=== PATIENT | female | born 1950 | race Caucasian/White ===

== ENCOUNTER 2017-06-13 17:23 | Inpatient (IN) ==
--- NOTE | 2017-06-13 17:29 | Emergency Department Note ---
Disposition Clinical Impression: ST elevation myocardial infarction (STEMI) Qualifiers: Involved coronary artery: LAD coronary artery Qualified Code(s): I21.02 - ST elevation (STEMI) myocardial infarction involving left anterior descending coronary artery Disposition: Admitted As Inpatient Condition: Fair Time of Disposition: 18:10 Chest Pain HPI - General Chief Complaint: ED Chest Pain Stated Complaint: CP Time Seen by Provider: 06/13/17 17:29 Source: patient Mode of arrival: ambulatory Limitations: no limitations Vital Signs Reviewed: Yes Nursing Notes Reviewed: Yes - History of Present Illness HPI Narrative: Patient is a 67-year-old female with past medical history of COPD, smoking, hypertension, high cholesterol. She presents today due to chest pain. She states that her chest discomfort started around 5-6 hours prior to arrival around 11 AM this morning. She presented to [facility] around 2 or 3 PM. She states that while she was there she was given 4 nitroglycerin, IV pain medication, had a CT scan of the chest with IV contrast to assess for any acute process or PE. She reports that her scan was negative. She said that she left the hospital AGAINST MEDICAL ADVICE because she was not having any relief of her pain and she said "they do not tell him what was going on. She went home and was still having pain, take 2 Percocet, 4 baby aspirin prior to arrival. She came back to the ER here for continued chest pain. She states that the chest pain was 10 out of 10 earlier, has lessened to a 5 out of 10 after Percocet. She is declining any additional pain medication at this time. Chest pain is described as sharp, across her entire chest, worsened with deep inspirations, is not radiating anywhere else. Denies any associated nausea, vomiting, fevers, sweating, abdominal pain. Denies any history of CA or stents. Severity scale (1-10): 5 - Related Data Home Medications Medication Instructions Recorded Confirmed Aspirin [Lo-Dose Aspirin EC] 81 mg PO DAILY 04/24/17 06/12/17 Carvedilol [Coreg] 25 mg PO BID 04/24/17 06/12/17 Citalopram Hydrobromide 40 mg PO DAILY 04/24/17 06/12/17 [Citalopram HBr] Docusate Sodium [Dok] 100 mg PO DAILY 04/24/17 06/12/17 Ergocalciferol (VITAMIN D2) 400 unit PO DAILY 04/24/17 06/12/17 [Vitamin D] Ferrous Sulfate 325 mg PO DAILY 04/24/17 06/12/17 Lisinopril [Zestril] 40 mg PO DAILY 04/24/17 06/12/17 Oxycodone HCl/Acetaminophen 1 tab PO TID PRN 04/24/17 06/12/17 [Percocet 10-325 mg Tablet] Vitamin B Complex Vit C No.4 1 tab PO DAILY 04/24/17 06/12/17 [Super B Complex] amLODIPine [Norvasc] 5 mg PO DAILY 04/24/17 06/12/17 Previous Rx's Medication Instructions Recorded GuaiFENesin/Codeine [ROBITUSSIN 5 - 10 ml PO Q4H PRN 10 Days #500 06/01/17 w/CODEINE] ml Promethazine [Phenergan] 12.5 - 25 mg PO Q6HR PRN #80 tablet 06/04/17 Esomeprazole Magnesium [Nexium] 40 mg PO BID #60 capsule. 06/12/17 Allergies Allergy/AdvReac Type Severity Reaction Status Date / Time meloxicam [From Mobic] Allergy Anaphylaxis Verified 06/12/17 13:51 tetanus and diphtheria Allergy Swelling Verified 06/12/17 13:51 toxoids of Lip/Tongue/Throat All systems ED: reviewed and negative except as stated. Constitutional: Denies: fever Cardiovascular: Reports: chest pain. Denies: palpitations Respiratory: Reports: dyspnea. 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 - Social History Smoking Status: Current every day smoker Alcohol use: Reports: rarely Drug use: Reports: none Physical Exam - General Limitations: no limitations General appearance: alert - Head Head exam: atraumatic, normocephalic, normal inspection - Eye Eye exam: Present: normal appearance, PERRL, EOMI - ENT ENT exam: normal exam, normal oropharynx, mucous membranes moist - Neck Neck exam: Present: normal inspection, full ROM, trachea midline - Chest Chest inspection: Present: normal inspection, symmetric chest wall rise - Respiratory Respiratory exam: Present: normal lung sounds bilaterally - Cardiovascular Cardiovascular exam: Present: regular rate, normal rhythm, normal heart sounds - Abdominal Exam Abdominal exam: Present: soft, Non-Tender. Absent: tenderness, distention, guarding, rebound, rigidity - Extremities Exam Extremities exam: Present: normal inspection, full ROM. Absent: tenderness, pedal edema - Neurological Exam Neurological exam: Present: alert, oriented X3 - Psychiatric Psychiatric exam: Present: normal affect, normal mood - Skin Skin exam: Present: warm, dry, intact, normal color Course Course Narrative: Bedside EKG shows a acute ST elevation and V2, 3, aVF, V4 through V6. Concern for inferior versus inferior lateral CA. Positive STEMI. Stimulant was called , patient was given Proventil 180 mg, ACS protocol heparin dosing. Did not give aspirin here due to patient taking 324 mg of aspirin just prior to arrival. Systolic blood pressure was 90s on presentation, dropped to 60 systolic. However, patient was still mentating well and had no complete lightheadedness, dizziness. 2 L bolus started with 2 peripheral IVs. Blood pressure is now back up to 90 systolic. She is having some increase in chest pain at this time he was agreeable with trying sent now for further pain control. I spoke with Dr. Bourne in the meantime with interventional cardiology , he will take the patient to [facility]. 18:20 patient taken to [facility]. BP in 90s systolic. Still mentating well. Stable prior to transfer to [facility]. Vital Signs Temperature 98.3 F 06/13/17 17:24 Pulse Rate 75 06/13/17 17:24 Respiratory Rate 18 06/13/17 17:24 Blood Pressure 90/54 06/13/17 17:24 O2 Sat by Pulse Oximetry 93 06/13/17 17:24 Temperature 98.3 F 06/13/17 17:24 Pulse Rate 70 06/13/17 18:17 Respiratory Rate 16 06/13/17 18:17 Blood Pressure 82/62 06/13/17 18:17 O2 Sat by Pulse Oximetry 94 06/13/17 18:17 Oxygen Delivery Oxygen Delivery Nasal Cannula Chest Pain - MDM Narrative Medical decision making narrative: Bedside EKG shows a acute ST elevation and V2, 3, aVF, V4 through V6. Concern for inferior versus inferior lateral CA. Positive STEMI. Stimulant was called , patient was given Proventil 180 mg, ACS protocol heparin dosing. Did not give aspirin here due to patient taking 324 mg of aspirin just prior to arrival. Systolic blood pressure was 90s on presentation, dropped to 60 systolic. However, patient was still mentating well and had no complete lightheadedness, dizziness. 2 L bolus started with 2 peripheral IVs. Blood pressure is now back up to 90 systolic. She is having some increase in chest pain at this time he was agreeable with trying sent now for further pain control. I spoke with Dr. Bourne in the meantime with interventional cardiology , he will take the patient to [facility]. 18:20 patient taken to [facility]. BP in 90s systolic. Still mentating well. Stable prior to transfer to [facility]. - Medical Records Medical records reviewed: Yes I reviewed the patient's medical records. - Lab Data Lab results reviewed: Yes I reviewed the patient's lab results. Result diagrams: 06/13/17 17:47 06/13/17 17:47 Lab Results 06/13/17 06/13/17 06/13/17 Range/Units 17:47 17:47 17:47 WBC 15.0 H (4.3-11.1) K/mcL RBC 4.97 (3.82-4.97) M/mcL Hgb 12.2 (11.5-15.4) g/dL Hct 40.7 (35.3-44.9) % MCV 81.9 L (83.0-100.0) fL MCH 24.5 L (28.0-33.3) pg MCHC 30.0 L (31.6-35.5) g/dL RDW 16.1 H (11.5-14.5) % Plt Count 240 (140-400) K/mcL MPV 9.7 (9.4-12.4) fL Immature Gran % 0.4 (0-4) % Seg Neutrophils % 86.1 % Lymphocytes % 5.3 % Monocytes % 8.0 % Eosinophils % 0.1 % Basophils % 0.1 % Neutrophils # 12.9 H (1.6-8.9) K/mcL Lymphocytes # 0.8 (0.6-4.6) K/mcL Monocytes # 1.2 (0.0-1.3) K/mcL Eosinophils # 0.0 (0.0-0.6) K/mcL Basophils # 0.0 (0.0-0.2) K/mcL PT 12.0 (9.4-12.1) Seconds INR 1.1 APTT 30.7 (26.0-36.0) Seconds Sodium 137 (136-145) mEq/L Potassium 3.9 (3.5-5.1) mEq/L Chloride 105 (98-107) mEq/L Carbon Dioxide 27 (23-29) mEq/L BUN 12 (8-23) mg/dL Creatinine 0.82 (0.60-1.20) mg/dL Est GFR ( Amer) > 60 (> 60) Est GFR (Non-Af Amer) > 60 (> 60) BUN/Creatinine Ratio 15 (6-26) Glucose 105 (70-105) mg/dL Calculated Osmolality 284 (280-300) Calcium 8.3 L (8.6-10.3) mg/dL Magnesium 1.6 (1.6-2.6) mg/dL Troponin I < 0.03 (< 0.04) ng/mL - EKG Data EKG attestation: Yes I reviewed and interpreted this EKG. EKG results narrative: 06/13/2017 at 17:34. Normal sinus rhythm. Rate 69. WA 158. QRS 81. QTC 405. Normal axis. Acute ST elevation in leads 2, 3, aVF. There is also some ST elevation in lead V4, V5, V6. Currently concern for inferior versus inferior lateral CA. S.B.A.R. - Tadeo.B.A.R. Situation: Demographics, MOA Background: Presenting Complaint, Relevant PMH, Meds, & Allergies Assessment: Vital Signs, Course and respsone to treatment, Exam Concerns, Patient/Family Expectation, Pertinant Lab Results, Outstanding Labs Recommendation: Barrier(s) to disposition, Recommendation based on pending studies, treatments, or consults S.B.A.R. Report Given to: Dr. Steffen Dhillon Repor Time: 17:40
[2017-06-13] MEDS ORDERED: *HR* Ticagrelor 90 MG TABLET PO ONE (17:39)
[2017-06-13] MEDS ORDERED: Aspirin 81 MG TAB.CHEW ONE (17:40)
[2017-06-13] MEDS ORDERED: 0.9 % Sodium Chloride 1,000 ML ONE ×2 (17:40→17:48)
[2017-06-13] MEDS ORDERED: *HR* Heparin 5,000 UNIT/ML VIAL IVP PRN ×2 (17:40)
[2017-06-13] MEDS ORDERED: *HR* Heparin 5,000 UNIT/ML VIAL ONE (17:40)
[2017-06-13] MEDS ORDERED: *HR* Ticagrelor 90 MG TABLET ONE (17:40)
[2017-06-13] MEDS ORDERED: *HR* Heparin 5,000 UNIT/ML VIAL IVP ONE (17:40)
--- NOTE | 2017-06-13 17:42 | Emergency Department Note ---
Disposition Clinical Impression: ST elevation myocardial infarction (STEMI) Qualifiers: Involved coronary artery: LAD coronary artery Qualified Code(s): I21.02 - ST elevation (STEMI) myocardial infarction involving left anterior descending coronary artery Disposition: Admitted As Inpatient Condition: Fair Forms: ED Satisfaction Letter General Adult HPI - General Chief complaint: ED Chest Pain Stated complaint: CP Time Seen by Provider: 06/13/17 17:29 Source: patient, family Mode of arrival: ambulatory Limitations: no limitations Nursing Notes Reviewed: Yes Vital Signs Reviewed: Yes - History of Present Illness Pain Scale: 5 - Related Data Home Medications Medication Instructions Recorded Confirmed Aspirin [Lo-Dose Aspirin EC] 81 mg PO DAILY 04/24/17 06/12/17 Carvedilol [Coreg] 25 mg PO BID 04/24/17 06/12/17 Citalopram Hydrobromide 40 mg PO DAILY 04/24/17 06/12/17 [Citalopram HBr] Docusate Sodium [Dok] 100 mg PO DAILY 04/24/17 06/12/17 Ergocalciferol (VITAMIN D2) 400 unit PO DAILY 04/24/17 06/12/17 [Vitamin D] Ferrous Sulfate 325 mg PO DAILY 04/24/17 06/12/17 Lisinopril [Zestril] 40 mg PO DAILY 04/24/17 06/12/17 Oxycodone HCl/Acetaminophen 1 tab PO TID PRN 04/24/17 06/12/17 [Percocet 10-325 mg Tablet] Vitamin B Complex Vit C No.4 1 tab PO DAILY 04/24/17 06/12/17 [Super B Complex] amLODIPine [Norvasc] 5 mg PO DAILY 04/24/17 06/12/17 Previous Rx's Medication Instructions Recorded GuaiFENesin/Codeine [ROBITUSSIN 5 - 10 ml PO Q4H PRN 10 Days #500 06/01/17 w/CODEINE] ml Promethazine [Phenergan] 12.5 - 25 mg PO Q6HR PRN #80 tablet 06/04/17 Esomeprazole Magnesium [Nexium] 40 mg PO BID #60 capsule. 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 We had independent face-to- face examination and discussion. The patient was seen with the emergency medicine resident Dr. Aldo Waterman I examined this patient and my medical decision-making was reviewed with the Resident Physician/[employer]LOOR LAYER/PA. I agree with the documented findings, disposition and treatment plan as described except to the extent set forth below. Briefly: 67-year-old female seen at outside ER earlier today brought in by family for worsening and recurrent chest pain with diaphoresis and weakness. Patient arrived bed EKG showed acute ST elevation CO in 23 and aVF consistent with inferolateral wall CO Dr. Bourne jack prizer called STEMI alert called STEMI protocol is being followed. Catheter lab is being activated. Providing 40 minutes of critical care service for this patient. Patient to go to the Data Analytics Chief Scientist and then be admitted to the ICU thereafter. Time: 17:40 Vital Signs Temperature 98.3 F 06/13/17 17:24 Pulse Rate 75 06/13/17 17:24 Respiratory Rate 18 06/13/17 17:24 Blood Pressure 90/54 06/13/17 17:24 O2 Sat by Pulse Oximetry 93 06/13/17 17:24 Temperature 98.3 F 06/13/17 17:24 Pulse Rate 75 06/13/17 17:24 Respiratory Rate 18 06/13/17 17:24 Blood Pressure 90/54 06/13/17 17:24 O2 Sat by Pulse Oximetry 93 06/13/17 17:24 Oxygen Delivery Oxygen Delivery Room Air
[2017-06-13] MEDS ORDERED: 0.9 % Sodium Chloride 1,000 ML IVC ONE ×2 (17:43→18:01)
[2017-06-13] MEDS ORDERED: Heparin 25,000 UNIT/500 ML D5W 25,000 UNIT/500 ML BAG IVC SCH (17:45)
[2017-06-13 17:54] LABS: Basophils % 0.1 %; Eosinophils % 0.1 %; Hematocrit 40.7 % (35.3-44.9); Hemoglobin 12.2 g/dL (11.5-15.4); Immature Granulocytes % 0.4 % (0-4); Lymphocytes # 0.8 K/mcL (0.6-4.6); Lymphocytes % 5.3 %; Mean Corpuscular Hemoglobin 24.5 pg (28.0-33.3); Mean Corpuscular Volume 81.9 fL (83.0-100.0); Mean Platelet Volume 9.7 fL (9.4-12.4); Monocytes # 1.2 K/mcL (0.0-1.3); Neutrophils # 12.9 K/mcL (1.6-8.9); Platelet Count 240 K/mcL (140-400); Red Blood Count 4.97 M/mcL (3.82-4.97); Red Cell Distribution Width 16.1 % (11.5-14.5); Segmented Neutrophils % 86.1 %
[2017-06-13] MEDS ORDERED: *HR* Vasopressin 20 UNIT/ML VIAL ONE (17:57)
[2017-06-13] MEDS ORDERED: *HR* FentaNYL (PF) 100 MCG/2 ML VIAL IVP ONE (18:01)
[2017-06-13] MEDS ORDERED: *HR* Midazolam HCl 2 MG/2 ML VIAL ONE (18:03)
[2017-06-13] MEDS ORDERED: Heparin 1,000 UNITS/500 mL 500 ML ONE (18:03)
[2017-06-13] MEDS ORDERED: *HR* Heparin 10,000 UNIT/10 ML VIAL ONE (18:03)
[2017-06-13] MEDS ORDERED: ISOVUE-370 200 ML INFUS..BTL IV ONE ×2 (18:04→18:12)
[2017-06-13] MEDS ORDERED: Nitroglycerin 1,000 MCG/10 ML VIAL IV ONE (18:05)
--- NOTE | 2017-06-13 18:07 | Pre-Sedation Evaluation ---
Pre-sedation evaluation - Pre-sedation checklist Date of procedure: 06/13/17 Procedure: left heart cath Recent Vitals: Last Vital Signs Temp 98.3 F 06/13/17 17:24 Pulse 69 06/13/17 18:01 Resp 12 06/13/17 18:01 BP 86/49 06/13/17 18:01 Pulse Ox 93 06/13/17 18:01 H&P (including ROS) documented in medical record: Yes Previous reaction to sedatives/anesthetics: No Dietary Status: No solid food in preceding 4 hrs and no liquid in preceding 2 hrs Airway Assessment: Patient can open mouth completely, TMJ function normal Dentition: No loose teeth or bridges Possible difficult airway: No ASA Classification *see protocol: CLASS III-Severe systemic disease
--- NOTE | 2017-06-13 18:08 | Cardiology History & Physical ---
Date of Encounter: 06/23/17 Time of Encounter: 18:20 Assessment and Plan (1) Chest pain Status: Acute Patient presented with chest pain, ongoing, abnormal EKG, discussed risks and benefits of early invasive strategy, with emergent LHC, recs to proceed with LHC , with pt and family, agree to proceed. Qualifiers: Chest pain type: chest pain on breathing Qualified Code(s): R07.1 - Chest pain on breathing; R07.81 - Pleurodynia (2) CAD (coronary artery disease) Status: Acute No previous hx CAD, EKG concerning for new inf [place]. Qualifiers: Coronary Disease-Associated Artery/Lesion type: [place] artery [place] vs. transplanted heart: [place] heart Associated angina: with unstable angina Qualified Code(s): I25.110 - Atherosclerotic heart disease of [place] coronary artery with unstable angina pectoris (3) Hypotension Status: Acute Blood pressure low, continues to trend down despite medical tx, will assess for cardiogenic etiology. Qualifiers: Hypotension type: idiopathic hypotension Qualified Code(s): I95.0 - Idiopathic hypotension (4) Non-small cell lung cancer Status: Acute Started chemotherapy, continues to smoke up to a pack a day against medical advice. Qualifiers: Laterality: left Qualified Code(s): C34.92 - Malignant neoplasm of unspecified part of left bronchus or lung History of Present Illness HPI: Ms. Moya is a 67 year old female who presents to the ER with complaint of sudden onset left sided chest pain, 9/10, occurred at rest, stabbing pain at onset, became dull ache over several hours. She was evaluated in [place] ER, had chest CT which was reportedly negative for PE, was admitted for observation , but signed out AMA. She reports pain has continued to worsen throughout the day. She reports pain is now 8/10, does not change with deep breath or position. She reports pain is associated with nausea and diaphoresis, pts family at beside reports she has been clammy on and off all afternoon. She denies previous cardiac history or evaluation. She has recent diagnosis lung cancer, and is receiving IV chemotherapy. Past Med Surg Social Fam HX - Past Medical History Medical history: cancer, CHF, COPD, CVA, hyperlipidemia, hypertension, seizures Psychiatric history: no psych history - Past Surgical History Surgical History: non-contributory - Social History Smoking Status: Current every day smoker Smokeless Tobacco Status: No Alcohol use: rarely Drug use: none - Family History Mother History Unknown: Yes Medications and Allergies Aspirin [Lo-Dose Aspirin EC] 81 mg PO DAILY 04/24/17 [History] Citalopram Hydrobromide [Citalopram HBr] 40 mg PO DAILY 04/24/17 [History] Docusate Sodium [Dok] 100 mg PO DAILY 04/24/17 [History] Ergocalciferol (VITAMIN D2) [Vitamin D] 400 unit PO DAILY 04/24/17 [History] Ferrous Sulfate 325 mg PO DAILY 04/24/17 [History] Lisinopril [Zestril] 40 mg PO DAILY 04/24/17 [History] Oxycodone HCl/Acetaminophen [Percocet 10-325 mg Tablet] 1 tab PO TID PRN [History] Vitamin B Complex Vit C No.4 [Super B Complex] 1 tab PO DAILY 04/24/17 [History] amLODIPine [Norvasc] 5 mg PO DAILY 04/24/17 [History] Promethazine [Phenergan] 12.5 - 25 mg PO Q6HR PRN #80 tablet 06/04/17 [Rx] Esomeprazole Magnesium [Nexium] 40 mg PO BID #60 capsule.dr 06/12/17 [Rx] Albuterol Sulfate [Albuterol Inhaler] 2 puff IH Q4HR PRN #1 hfa.aer.ad 06/16/17 [Rx] Amoxicillin/Clavulanate [Augmentin] 875 mg PO BIDWM #14 tablet 06/16/17 [Rx] Atorvastatin [Lipitor] 40 mg PO HS #30 tablet 06/16/17 [Rx] Benzonatate [Tessalon] 100 mg PO TID PRN #30 capsule 06/16/17 [Rx] Budesonide/Formoterol 80/4.5 [Symbicort 80/4.5] 2 puff IH BID #1 hfa.aer.ad 05/31 [Rx] Carvedilol [Coreg] 6.25 mg PO BIDWM #60 tablet 06/16/17 [Rx] Doxycycline 100 mg PO BID #14 capsule 06/16/17 [Rx] GuaiFENesin ER [Mucinex] 600 mg PO BID PRN #30 tbbp.12hr 06/16/17 [Rx] Tiotropium [Spiriva] 18 mcg IH 0700 #30 capsule 06/16/17 [Rx] predniSONE [PredniSONE] 10 mg PO DAILY 8 Days tablet 06/16/17 [Rx] 3 Allergy/AdvReac Type Severity Reaction Status Date / Time meloxicam [From Mobic] Allergy Anaphylaxis Verified 06/12/17 13:51 tetanus and diphtheria Allergy Swelling Verified 06/12/17 13:51 toxoids of Lip/Tongue/Throat ROS unobtainable: due to mental status All Systems Review: The remainder of the systems were reviewed and are negative - Constitutional Constitutional: chills, fatigue, fever(s), headache(s) - Respiratory Respiratory: cough, dyspnea, other (productive cough, continues to smoke AMA) - Gastrointestinal Gastrointestinal: abdominal pain, nausea - Musculoskeletal Musculoskeletal: arthralgias, back pain, muscle cramps - Psychiatric Psychiatric: depression, panic attacks Physical Examination Vital Signs, Last 4 Hours Pulse Resp BP Pulse Ox 06/13/17 18:01 69 12 86/49 93 06/13/17 17:58 92 06/13/17 17:53 67 16 64/31 92 General: Conversant, Other (very anxious complaining of ongoing chest pain, unrelieved with medical tx so far. ) HEENT: Atraumatic, Normocephaly Neck: Normal carotid pulses Cardiac: Reg Rate and Rhythm, Normal S1 and S2, No Murmur Lungs: Other (Decreased breath sounds, scattered exp wheezes,) Neuro: Alert and responsive Abdomen: Soft, Non-Tender Skin: No rashes noted on visualized skin Musculoskeletal: No Chest Wall Tenderness Extremities: No Clubbing, No Cyanosis, No Edema, Normal Pulses Results 06/16/17 04:11 06/16/17 04:11
[2017-06-13 18:10] LABS: INR 1.1
[2017-06-13 18:12] LABS: Activated Partial Thrombo Time 30.7 Seconds (26.0-36.0)
[2017-06-13 18:16] LABS: BUN/Creatinine Ratio 15 (6-26); Blood Urea Nitrogen 12 mg/dL (8-23); Calcium 8.3 mg/dL (8.6-10.3); Carbon Dioxide 27 mEq/L (23-29); Chloride 105 mEq/L (98-107); Glucose 105 mg/dL (70-105); Magnesium 1.6 mg/dL (1.6-2.6); Osmolality,Calculated 284 (280-300); Potassium 3.9 mEq/L (3.5-5.1); Sodium 137 mEq/L (136-145); eGFR For African Americans > 60 (> 60); eGFR For Non-African Americans > 60 (> 60)
[2017-06-13 18:17] LABS: Troponin I < 0.03 ng/mL (< 0.04)
[2017-06-13] MEDS ORDERED: Ondansetron 4 MG/2 ML VIAL ONE (19:01)
[2017-06-13] MEDS ORDERED: 0.9 % Sodium Chloride 500 ML ONE (19:26)
--- NOTE | 2017-06-13 19:30 | Invasive Diagnostic Lab Proc ---
Name: Pina Moya Date of Study: 06/13/2017 Date: 1950 Ht: 63.0in Medical Record#: [id number] Age: 67 Wt: 145.51lb Gender: Female BSA: 1.69 Order #: [id number] BMI: 25.78 Physicians Procedure Physician: Jose Luis Bourne DO Referring MD: Susan nAderson MD Referring MD: Staff Name Position Time In Oswaldo Hernadez RN Monitor 06:26 PM Beny Bernal RN Manifold Operator 06:26 PM Vanessa, Joselyn RT (R) Scrub 06:26 PM Indications Indication STEMI Procedures Performed Procedure L HRT ARTERY/VENTRICLE ANGIO Pre-Procedure Checklist Informed consent is complete signed and on chart. H&P is on chart. ID band is on and ID verified with patient. Pt not NPO for procedure and MD aware. The procedure was described for the patient and questions were answered. Blood Pressure: 90/54 ECG is on chart. Rhythm: NSR Plan of Care Patient will tolerate the procedure without complications. Adequate level of comfort will be maintained. Hemodynamics will remain stable Patient will recover from procedure without complications. Respiratory function will be maintained. Cardiac rhythm will remain stable. Patient temperature will be maintained. Patient and/or family have verbalized understanding of the procedure. Patient Education Intravenous Access Time IV Size Location DC'd Fluid/Drip Rate Units RN 20g 1 1/4" Patent On Arrival Rt Arm 0.9NaCl 500 ml/hr Beny Bernal RN 18g 1 1/4" Patent On Arrival Left forearm 0.9NaCl 25 ml/hr Beny Bernal RN Allergies meloxicam Tetanus Toxoid Vital Signs Time BP (mmHg) HR (bpm) O2 Sat. RR (bpm) LOC 06:27 PM 124 / 56 72 93 % 25 5 = Fully awake and oriented or at pre-proc level 06:28 PM / % 3 = Answers simple questions/follows commands 06:43 PM / % 4 = Oriented but drowsy 06:58 PM / % 4 = Oriented but drowsy 06:27 PM 124 / 56 71 95 % 06:32 PM 90 / 49 71 94 % 06:36 PM 82 / 41 69 89 % 06:39 PM 74 / 35 69 94 % 06:42 PM 75 / 41 67 92 % 06:47 PM 86 / 43 70 92 % 06:52 PM 99 / 45 80 94 % 06:57 PM 99 / 46 80 91 % 07:02 PM 102 / 48 86 93 % 07:07 PM 106 / 47 87 94 % Procedural Medications Time Medication Dose Units Method Given By 06:27 PM Oxygen 2 L/min nasal cannula Beny Bernal RN 06:31 PM Versed 1 mg Intravenous Beny Bernal RN 06:34 PM Lidocaine 2% 20 ml Subcutaneous Jose Luis Bourne DO 06:35 PM Dopamine 5 mcg/kg/min Intravenous Beny Bernal RN 06:40 PM Dopamine 10 mcg/kg/min Intravenous Beny Bernal RN ASA Classification: Emergent Procedure: ASA score is assumed Meme Score Preprocedure Postprocedure Activity 2- Moves 4 extremities sustained head lift Activity 2- Moves 4 extremities sustained head lift Circulation 2- SBP +/= 20 points of pre-anesthetic level Circulation 2- SBP +/= 20 points of pre-anesthetic level Consciousness 2- Awake and alert oriented x 3 Consciousness 2- Awake and alert oriented x 3 O2 Saturation 1- Needs O2 inhalation to maintain O2 saturation of 90% O2 Saturation 1- Needs O2 inhalation to maintain O2 saturation of 90% Respiratory 2- Able to deep breathe and cough well Respiratory 2- Able to deep breathe and cough well Total Score 9 Total Score 9 Contrast Agent: Isovue Diagnostic Contrast: 70 ml Total Contrast: 70 ml Fluoro Dose: 235 mGy Activated Clotting Time Time Seconds to Clot 06:57 PM 179 Procedure Log Time Note Enter By 06:05 PM CathStat 06:26 PM Case Start 06:26 PM Vitals capture started with the following parameters, Patient=Adult, Interval=5 min, Initial Cqfthbva=627 mmHg, Deflation Rate=3 mmHg, Cuff placed on Right Arm 06:26 PM Pt arrived to medical lab scientist 2 at 18:20 tsites 06:26 PM Oswaldo Hernadez RN Position: Monitor Time in: 18:26 tsites 06:26 PM Beny Bernal RN Position: Manifold Operator Time in: 18:26 tsites 06:27 PM Joselyn Mendez RT (R) Position: Scrub Time in: 18:26 tsites 06:27 PM Patient charges- Angio tray pack, Navilyst 3mm J, Pulse Oximetry and ACIST tubing and transducer tsites 06:27 PM Hair removed from procedure site in procedure lab using clippers. Bilateral groin prepped with Chloraprep by Dolores, Beny RN, then patient was draped. Skin intact. tsites 06:27 PM Procedure start 18:27 tsites 06:27 PM HR=71 bpm, RBDR=592/56 mmhg, SpO2=95.0 %, Comment=nsr 06:27 PM Time: 18:27 Oxygen on at 2 L/min per nasal cannula by Beny Bernal RN tsites 06: PM Time: 18:27 Patient comfortable and pain free: No 9/10 chest pain tsites 06:28 PM Time: 18:27LOC: 5 = Fully awake and oriented or at pre-proc level tsites 06:31 PM Recorded ECG: HR=71 Condition=Condition 1 06:31 PM Physician arrived 18:31 csmith 06: PM Time: 18:31 Versed 1 mg Intravenous Given by Beny Bernal RN csmith 06:32 PM HR=71 bpm, NIBP=90/49 mmhg, SpO2=94.0 % 06:34 PM Time out performed according to hospital policy csmith 06:34 PM Pressure channel 2 zeroed. 06:34 PM Time: 18:34 20 ml Lidocaine 2% to right groin Subcutaneous Given by Jose Luis Bourne DO csmith 06:35 PM Time: 18:35 Dopamine 5 mcg/kg/min Intravenous Given by Beny Bernal RN Lopez pump csmith 06:35 PM NIBP STAT measurement started. 06:36 PM HR=69 bpm, NIBP=82/41 mmhg, SpO2=89.0 %, Comment=nsr 06:38 PM Access obtained by percutaneous puncture. 4Fr 10cm Terumo [place] sheath placed in right Femoral vein. [id number] csmith 06:38 PM NIBP STAT measurement started. 06:39 PM HR=69 bpm, NIBP=74/35 mmhg, SpO2=94.0 %, Comment=nsr 06:39 PM Micro-Introducer Kit utilized for sheath placement csmith 06:39 PM Access obtained by percutaneous puncture. 6Fr 11cm Terumo [place] sheath placed in right Femoral artery. [id number] csmith 06:40 PM 6Fr FL 4 catheter inserted over the wire DNC csmith 06:40 PM LCA angiography performed in multiple views. csmith 06:40 PM Time: 18:40 Dopamine 10 mcg/kg/min Intravenous Given by Beny Bernal RN Lopez pump csmith 06:42 PM Catheter removed csmith 06:42 PM HR=67 bpm, NIBP=75/41 mmhg, SpO2=92.0 %, Comment=nsr 06:42 PM 6Fr JR 4 Runway guide catheter was used to cannulate the PCI vessel successfully. reused? No csmith 06:42 PM Time: 18:27 Patient comfortable and pain free: Yes csmith 06:43 PM Time: 18:28LOC: 3 = Answers simple questions/follows commands csmith 06:44 PM Recorded Pressure: LV, HR=79, Condition=Condition 1 (Left Ventricle) LV 74/9/18 06:44 PM Recorded Pressure: LV, Ao, HR=75, Condition=Condition 1 (Left Ventricle) LV 80/10/20, (Aorta) Ao 77/40/56 06:44 PM Catheter selectively placed in left ventricle csmith 06:44 PM hand injection of LV csmith 06:45 PM RCA angiography performed in multiple views. csmith 06:47 PM Catheter removed csmith 06:47 PM Wire removed csmith 06:47 PM HR=70 bpm, NIBP=86/43 mmhg, SpO2=92.0 %, Comment=nsr 06:50 PM Procedure completed at 18:50 csmith 06:51 PM Did you address TRAMAINE flow and Dominance? Yes csmith 06:51 PM Sign out completed: Radiation Dose 235 mGy Fluoro Time: 2.5 Isovue 370 - 200ml contrast 70 ml given by Jose Luis Bourne DO. Complications: NoneCardiac Rehab Consult needed: NoConfirmed administered medications: Yes csmith 06:51 PM Isovue 370 - 200ml,1 Bottle(s) used. csmith 06:51 PM Sheath left in place to be pulled on floor/holding area csmith 06:51 PM Estimated Blood Loss: minimal csmith 06:51 PM Post ECG NSR csmith 06:51 PM Post Blood Pressure 86/43 csmith 06:51 PM 18:51 Post Pulses Bilateral DP 1+ csmith 06:51 PM Information taught Cardiac Cath csmith 06:52 PM Education needs Responsibilities of Patient in Care csmith 06:52 PM Learning barriers :None csmith 06:52 PM Education Methods Verbal csmith 06:52 PM Education evaluation Able to repeat information csmith 06:52 PM Site status No bleeding/hematoma - Rt Groin as reported by Sites, Joselyn RT (R) at 18:52 csmith 06:52 PM Opsite applied csmith 06:52 PM Plavix, Effient or Brilinta given No csmith 06:52 PM HR=80 bpm, NIBP=99/45 mmhg, SpO2=94.0 %, Comment=nsr 06:57 PM At 18:57 the ACT was 179 seconds. csmith 06:57 PM HR=80 bpm, NIBP=99/46 mmhg, SpO2=91.0 %, Comment=nsr 06:58 PM Time: 18:43LOC: 4 = Oriented but drowsy csmith 06:58 PM Time: 18:42 Patient comfortable and pain free: No csmith 06:59 PM Lesion found in Mid LAD. Pre Stenosis: 40 Pre TRAMAINE Flow: 3: Complete and Brisk Flow/Perfusion csmith 06:59 PM Lesion found in Proximal Circumflex. Pre Stenosis: 40 Pre TRAMAINE Flow: 3: Complete and Brisk Flow/Perfusion csmith 07:02 PM HR=86 bpm, NDMU=154/48 mmhg, SpO2=93.0 %, Comment=nsr 07:07 PM HR=87 bpm, OKHI=392/47 mmhg, SpO2=94 % 07:13 PM Time: 18:58 Patient comfortable and pain free: Yes csmith 07:13 PM Time: 18:58LOC: 4 = Oriented but drowsy csmith 07:20 PM Patient out of room: 19:20 csmith 07:20 PM Report given to lizbeth COREY Pt taken to ICU Room #1. 19:20 csmith 07:20 PM Family placed in consult room. [facility] Complications Complication None Hemodynamics Pressures Site Systolic/A Wave Diastolic/V Wave Mean LV 74 9 18 LV 80 10 20 AO 77 40 56 Post Procedure Information Blood Pressure: 86/4 mmHg Rhythm: NSR Post procedural instructions were given Closure Device Time Device Success/Fail Manual Compression Site Checks Time Location Status Staff Sheath In? Note 06:52 PM Rt Groin No bleeding/hematoma Sites, Joselyn RT (R) Pulses Time Site Pre-Procedure Post-Procedure Note 06/13/2017 6:28:00 PM Bilateral DP 2+ 6:51:00 PM Bilateral DP 1+ Updated by Joselyn Mendez, RT (R) on 06/13/2017 7:21:17 PM Joselyn Sites, RT electronically signed on 06/13/2017 7:23:11 PM with status of Final
[2017-06-13] MEDS ORDERED: 0.9 % Sodium Chloride 1,000 ML IVC SCH (19:45)
[2017-06-13] MEDS ORDERED: Ondansetron 4 MG/2 ML VIAL IVP PRN (21:09)
[2017-06-13] MEDS ORDERED: Naloxone 0.4 MG/ML INJ IVP PRN (21:09)
[2017-06-13] MEDS ORDERED: Ipratropium/Albuterol Neb 3 ML IH PRN (21:41)
[2017-06-13] MEDS: 0.9 % Sodium Chloride 1,000 ML IVC SCH (21:54)
[2017-06-13] MEDS: Norepinephrine 4 MG in D5% in Water 250 ML IVC SCH (21:55)
[2017-06-13] MEDS: OXYCODONE Oral CONC 10 MG/0.5 ML ORAL.SYG SL PRN (21:56)
[2017-06-13] MEDS: Ipratropium/Albuterol Neb 3 ML IH SCH (22:22)
[2017-06-13] MEDS: Piperacillin/Tazobactam 3.375 GM in 0.9 % Sodium Chloride Mini Bag 100 ML IVPB SCH (23:17)
[2017-06-13] MEDS: methylPREDNISolone 125 MG/2 ML VIAL IVP SCH (23:17)
--- NOTE | 2017-06-14 02:19 | Internal Med History&Physical ---
Date of Encounter: 06/13/17 Time of Encounter: 20:00 Assessment and Plan (1) Chest pain Current visit: Yes Status: Acute Etiology is undetermined. LHC unremarkable. CTA shows no PE, no aortic dissection, no pneumothorax. On CAT scan, there is cavitation of the large mass in the left upper lobe, may represent a response to internal treatment of lung cancer or less likely a superimposed infection. -Consider patient also has elevated white count and hypotension, will empirically treat patient with broad spectrum antibiotic Vanco and Zosyn - Follow blood culture - Patient's initial lactate acid 0.5 - Consult radiation oncology for further management - Continue pain medications as BP tolerates Qualifiers: Chest pain type: chest pain on breathing Qualified Code(s): R07.1 - Chest pain on breathing; R07.81 - Pleurodynia (2) Non-small cell lung cancer Current visit: Yes Status: Acute Continue follow-up with oncology as outpatient Qualifiers: Laterality: left Qualified Code(s): C34.92 - Malignant neoplasm of unspecified part of left bronchus or lung (3) History of CVA (cerebrovascular accident) Current visit: Yes Status: Acute We will resume home medication after receiving diet (4) COPD exacerbation Current visit: Yes Status: Acute Patient had increased shortness of breath. Increased oxygen requirement. Rhonchi bilaterally, consider COPD exacerbation. - Treat patient with antibiotics, steroids, and bronchodilator (5) DVT prophylaxis Current visit: Yes Status: Acute EPCD (6) Hypotension Current visit: Yes Status: Acute Patient's BP get down to 60s, need Levophed infusion to maintain the BP. Etiology is undetermined, suspected due to infection. - Continue IV fluid, continue Levophed drip - Keep patient nothing by mouth at this point - Closely monitor patient and try to taper down pressor dose - Consul critical care team in a.m. Qualifiers: Hypotension type: idiopathic hypotension Qualified Code(s): I95.0 - Idiopathic hypotension Internal Medicine - H&P: HPI Chief complaint: Chest pain Admitted From: Home Plans for Post Hospital Care: Home History of present illness: Ms. Moya is a 67 year old female with a history of COPD, hypertension, history of CVA, Non small cell lung cancer on radiation therapy, presented to ER for chest pain. Patient said she had radiation therapy yesterday. Since this morning around 10:30, she suddenly has chest pain, pain is located on left chest, no radiation, sharp, constant, worsening on deep breath. Patient also has shortness of breath. Patient denies nausea or vomiting earlier but developed nausea and vomiting later. Patient went to [facility] emergency room. CT chest to with contrast shows no PE, no aortic dissection. Patient was placed on observation in [facility] but she signed AMA. Patient to present to our emergency room later, she was suspected [place] and cardiology consul was called immediately. Patient was brought to catheter lab and did LHC, which shows minimal stenosis, cannot explain the chest pain. Cardiology called me and would like hospitalist the to take over the case. Patient's BP getting down gradually and needs pressor after LHC. Patient was sent to ICU for further management/monitoring. Past Med Surg Social Fam HX - Past Medical History Medical history: cancer, CHF, COPD, CVA, hyperlipidemia, hypertension, seizures Psychiatric history: no psych history - Past Surgical History Surgical History: non-contributory - Social History Smoking Status: Current every day smoker Packs per day: 1 Smokeless Tobacco Status: No Alcohol use: rarely Drug use: none - Family History Mother History Unknown: Yes Internal Medicine - H&P: Meds Aspirin [Lo-Dose Aspirin EC] 81 mg PO DAILY 04/24/17 [History] Carvedilol [Coreg] 25 mg PO BID 04/24/17 [History] Citalopram Hydrobromide [Citalopram HBr] 40 mg PO DAILY 04/24/17 [History] Docusate Sodium [Dok] 100 mg PO DAILY 04/24/17 [History] Ergocalciferol (VITAMIN D2) [Vitamin D] 400 unit PO DAILY 04/24/17 [History] Ferrous Sulfate 325 mg PO DAILY 04/24/17 [History] Lisinopril [Zestril] 40 mg PO DAILY 04/24/17 [History] Oxycodone HCl/Acetaminophen [Percocet 10-325 mg Tablet] 1 tab PO TID PRN [History] Vitamin B Complex Vit C No.4 [Super B Complex] 1 tab PO DAILY 04/24/17 [History] amLODIPine [Norvasc] 5 mg PO DAILY 04/24/17 [History] GuaiFENesin/Codeine [ROBITUSSIN w/CODEINE] 5 - 10 ml PO Q4H PRN 10 Days #500 ml 06/01/17 [Rx] Promethazine [Phenergan] 12.5 - 25 mg PO Q6HR PRN #80 tablet 06/04/17 [Rx] Esomeprazole Magnesium [Nexium] 40 mg PO BID #60 capsule. 06/12/17 [Rx] 3 Allergy/AdvReac Type Severity Reaction Status Date / Time meloxicam [From Mob] Allergy Anaphylaxis Verified 06/12/17 13:51 tetanus and diphtheria Allergy Swelling Verified 06/12/17 13:51 toxoids of Lip/Tongue/Throat All Systems PM: A 10-system review of systems was performed and is negative for pertinent findings except as documented above in the HPI. - Constitutional Vitals: Temp Pulse Resp BP Pulse Ox 98.4 F 68 12 104/56 94 06/14/17 00:16 06/14/17 02:00 06/14/17 02:00 06/14/17 02:00 06/14/17 02:00 General appearance: Present: A&O X 3, severe distress, answers questions appropriately - Head Head exam: Present: atraumatic, normocephalic - Eye Eye exam: Present: PERRL, conjuntiva pink, sclera anicteric Pupils: Present: PERRL - Neck Neck exam general surgery: Present: supple, trachea midline. Absent: lymphadenopathy - Respiratory Respiratory exam: Present: chest wall tenderness (On left side mid-chest), CTAB , rhonchi (Bilateral diffused rhonchi). Absent: accessory muscle use, rales, wheezes - Cardiovascular Cardiovascular exam: Present: RRR, +S1, +S2, tachycardia. Absent: diastolic murmur, gallop, rubs, systolic murmur - GI/Abdominal GI/Abdominal exam: Present: normal bowel sounds, soft, no peritoneal signs. Absent: distended, tenderness - Extremities Exam Extremities exam: Present: warm, radial pulses palpable and symmetrical. Absent : calf tenderness, cyanotic, pedal edema - Neurological Exam Neurological exam: Present: CN II-XII intact, oriented X3, no focal deficits. Absent: pronater drift, facial droop, speech deficit - Skin Skin exam: Present: dry, intact Internal Med - H&P Results - Labs CBC & Chem 7: 06/13/17 17:47 06/13/17 17:47 - VTE Documentation of Mechanical Device: Intermittent pneumatic compression device
[2017-06-14] MEDS: Norepinephrine 4 MG in D5% in Water 250 ML IVC SCH (03:19)
[2017-06-14 04:01] LABS: Basophils % 0.1 %; Hematocrit 35.6 % (35.3-44.9); Hemoglobin 10.7 g/dL (11.5-15.4); Immature Granulocytes % 0.6 % (0-4); Immature Platelets 3.2 % (1.1-6.1); Lymphocytes # 0.2 K/mcL (0.6-4.6); Lymphocytes % 1.1 %; Mean Corpuscular HGB Conc 30.1 g/dL (31.6-35.5); Mean Corpuscular Hemoglobin 24.8 pg (28.0-33.3); Mean Corpuscular Volume 82.6 fL (83.0-100.0); Mean Platelet Volume 10.4 fL (9.4-12.4); Monocytes # 0.4 K/mcL (0.0-1.3); Monocytes % 2.5 %; Platelet Count 193 K/mcL (140-400); Red Blood Count 4.31 M/mcL (3.82-4.97); Segmented Neutrophils % 95.7 %
[2017-06-14 04:14] LABS: BUN/Creatinine Ratio 15 (6-26); Blood Urea Nitrogen 11 mg/dL (8-23); Calcium 7.7 mg/dL (8.6-10.3); Carbon Dioxide 26 mEq/L (23-29); Chloride 110 mEq/L (98-107); Glucose 154 mg/dL (70-105); Magnesium 1.5 mg/dL (1.6-2.6); Osmolality,Calculated 286 (280-300); Potassium 4.2 mEq/L (3.5-5.1); Sodium 137 mEq/L (136-145); eGFR For African Americans > 60 (> 60); eGFR For Non-African Americans > 60 (> 60)
[2017-06-14] MEDS: Ipratropium/Albuterol Neb 3 ML IH SCH ×4 (04:15→22:14)
[2017-06-14 04:29] LABS: Neutrophils # 14.6 K/mcL (1.6-8.9)
[2017-06-14 04:30] LABS: Platelet Estimate Normal (Normal)
[2017-06-14] MEDS: methylPREDNISolone 125 MG/2 ML VIAL IVP SCH (05:50)
[2017-06-14] MEDS: 0.9 % Sodium Chloride 1,000 ML IVC SCH ×3 (05:50→21:43)
[2017-06-14] MEDS: OXYCODONE Oral CONC 10 MG/0.5 ML ORAL.SYG SL PRN ×4 (06:15→20:23)
--- NOTE | 2017-06-14 08:43 | Pulmonology Consult Note ---
<aMnny Zee - Last Filed: 06/14/17 13:29> Date of Encounter: 06/14/17 Time of Encounter: 08:42 Assessment and Plan (1) Chest pain Current Visit: Yes Status: Acute admitted for chest pain and concern of STEMI LHC performed emergently 06/13, UNREMARKABLE - mild atherosclerotic coronary artery disease and normal LV with normal contractility EF 60% known history of left upper lobe squamous cell carcinoma, s/p 6 radiation treatments - last recent treatment 06/12 cardiology is primary rad onc consulted CT chest reported negative for PE, known CARLTON lung mass with possible superimposed pneumonia - patient afebrile with leukocytosis and normal lactate - continue Vancomycin and Zosyn and plan for quick de-escalation if cultures negative Qualifiers: Chest pain type: chest pain on breathing Qualified Code(s): R07.1 - Chest pain on breathing; R07.81 - Pleurodynia (2) Hypotension Current Visit: Yes Status: Acute patient became hypotensive requiring Levophed - currently off with MAP >65 chest pressure has improved arterial line in place, SBP 87-122/DBP 50-70 continue to monitor hold home antihypertensive medications Qualifiers: Hypotension type: idiopathic hypotension Qualified Code(s): I95.0 - Idiopathic hypotension (3) COPD (chronic obstructive pulmonary disease) Current Visit: Yes Status: Acute wheezing on exam duonebs and space IV Solu-medrol to 40mg q8h no home oxygen requirement, keep O2 saturation >88%, wean as tolerated Qualifiers: COPD type: unspecified COPD Qualified Code(s): J44.9 - Chronic obstructive pulmonary disease, unspecified (4) Tobacco abuse Current Visit: Yes Status: Acute current smoker patient counseled on smoking cessation (5) Squamous cell carcinoma of left lung Current Visit: Yes Status: Acute follows with Dr. Mera and Dr. Fuentes, completed radiation treatment Rad Onc consulted (6) DVT prophylaxis Current Visit: Yes Status: Acute SCDs History of Present Illness Consult date: 06/14/17 Requesting physician: Delfino Andrews Reason for consult: chest pain, other (hypotension on vasopressor) Chief complaint: Chest pain History of present illness: Pina is a 67-year-old female history of COPD, squamous cell carcinoma, hypertension, current smoker who was admitted to [facility] for chest pain and STEMI. Patient was taken to the [facility] by cardiology and found to have mild atherosclerotic disease without intervention. During procedure, noted to be hypotensive despite good EF 60% and normal contractility. Patient was admitted to the intensive care unit with a central line in place for norepinephrine. Pulmonology critical care service was consulted to make help manage. At this time patient continues to have some mild chest pressure but significantly improved. She denies any shortness of breath. States the chest pressure was sudden onset worse with inspiration. CT of the chest unremarkable for pulmonary embolism. She was placed on empiric antibiotics concerning for pneumonia superimposed on lung mass. She has known left upper lobe squamous cell carcinoma which she follows with oncology Dr. Mera and just finished her last radiation treatment with Dr. Fuentes. She continues to smoke and has been counseled on sensation. She has no other complaints. She denies any recent illness, long-distance travel, or sick contacts. Past Med Surg Social Fam HX - Past Medical History Medical history: cancer, CHF, COPD, CVA, hyperlipidemia, hypertension, seizures Psychiatric history: no psych history - Past Surgical History Surgical History: non-contributory - Social History Smoking Status: Current every day smoker Packs per day: 1 Smokeless Tobacco Status: No Alcohol use: rarely Drug use: none - Family History Mother History Unknown: Yes Medications and Allergies Aspirin [Lo-Dose Aspirin EC] 81 mg PO DAILY 04/24/17 [History] Carvedilol [Coreg] 25 mg PO BID 04/24/17 [History] Citalopram Hydrobromide [Citalopram HBr] 40 mg PO DAILY 04/24/17 [History] Docusate Sodium [Dok] 100 mg PO DAILY 04/24/17 [History] Ergocalciferol (VITAMIN D2) [Vitamin D] 400 unit PO DAILY 04/24/17 [History] Ferrous Sulfate 325 mg PO DAILY 04/24/17 [History] Lisinopril [Zestril] 40 mg PO DAILY 04/24/17 [History] Oxycodone HCl/Acetaminophen [Percocet 10-325 mg Tablet] 1 tab PO TID PRN [History] Vitamin B Complex Vit C No.4 [Super B Complex] 1 tab PO DAILY 04/24/17 [History] amLODIPine [Norvasc] 5 mg PO DAILY 04/24/17 [History] GuaiFENesin/Codeine [ROBITUSSIN w/CODEINE] 5 - 10 ml PO Q4H PRN 10 Days #500 ml 06/01/17 [Rx] Promethazine [Phenergan] 12.5 - 25 mg PO Q6HR PRN #80 tablet 06/04/17 [Rx] Esomeprazole Magnesium [Nexium] 40 mg PO BID #60 capsule. 06/12/17 [Rx] 3 Allergy/AdvReac Type Severity Reaction Status Date / Time meloxicam [From [facility]] Allergy Anaphylaxis Verified 06/12/17 13:51 tetanus and diphtheria Allergy Swelling Verified 06/12/17 13:51 toxoids of Lip/Tongue/Throat All Systems: The remainder of the systems were reviewed and are negative - Constitutional Constitutional: no chills, no fever(s) - Cardiovascular Cardiovascular: chest pain, chest pain at rest, no edema, no irregular heart rhythm, no lightheadedness, no rapid heart rate, no syncope - Respiratory Respiratory: cough, dyspnea, pain with cough, no wheezing, no chest congestion - Gastrointestinal Gastrointestinal: no abdominal pain, no diarrhea, no nausea, no vomiting Physical Examination Vital Signs: Vital Signs, Last 4 Hours Pulse Resp BP Pulse Ox 06/14/17 08:00 74 14 113/65 90 06/14/17 07:45 93 06/14/17 07:00 63 14 87/50 91 06/14/17 06:00 64 10 108/57 97 06/14/17 05:00 65 17 95/51 94 General appearance: no acute distress, alert Eyes: nonicteric ENT: oropharynx moist Neck: supple Effort: normal, other Inspection: normal Auscultation: left: rales, bilateral: wheezes Cardiovascular: regular rate and rhythm Gastrointestinal: normoactive bowel sounds, soft, non-tender, non-distended Integumentary: normal Extremities: no cyanosis, no edema, no clubbing, pink and warm, pulses normal, no ischemia or petechiae Musculoskeletal: no deformities, ROM normal normal mental status, non-focal exam, motor strength normal and symmetric mood appropriate, affect normal Results - Laboratory Findings CBC and BMP: 06/14/17 04:00 06/14/17 03:48 PT/INR, D-dimer PT 12.0 Seconds (9.4-12.1) 06/13/17 17:47 Abnormal lab findings: Abnormal lab results WBC 15.2 K/mcL (4.3-11.1) H 06/14/17 04:00 Hgb 10.7 g/dL (11.5-15.4) L D 06/14/17 04:00 MCV 82.6 fL (83.0-100.0) L 06/14/17 04:00 MCH 24.8 pg (28.0-33.3) L 06/14/17 04:00 MCHC 30.1 g/dL (31.6-35.5) L 06/14/17 04:00 RDW 16.0 % (11.5-14.5) H 06/14/17 04:00 Neutrophils # 14.6 K/mcL (1.6-8.9) H 06/14/17 04:00 Lymphocytes # 0.2 K/mcL (0.6-4.6) L 06/14/17 04:00 Chloride 110 mEq/L (98-107) H 06/14/17 03:48 Glucose 154 mg/dL (70-105) H 06/14/17 03:48 POC Glucose 141 mg/dL (58-89) H 06/14/17 00:19 Calcium 7.7 mg/dL (8.6-10.3) L 06/14/17 03:48 Magnesium 1.5 mg/dL (1.6-2.6) L 06/14/17 03:48 - Clinical Findings Intake & Output: Intake & Output 06/13/17 06/14/17 06/14/17 23:59 07:59 15:59 Intake Total 3081 / 3081 1307 / 1307 Output Total 300 / 300 Balance 3081 / 3081 1007 / 1007 Consult Discharge Plan - Plan Referrals: Susan Anderson MD [Primary Care Provider] - <Brtitny Mejia S - Last Filed: 06/14/17 23:03> Date of Encounter: 06/14/17 All Systems: The remainder of the systems were reviewed and are negative Physical Examination Vital Signs: Vital Signs, Last 4 Hours Temp Pulse Resp BP Pulse Ox 06/14/17 22:14 16 114/59 93 06/14/17 21:19 98.4 F 06/14/17 21:10 78 20 118/59 90 06/14/17 20:00 66 16 134/70 94 06/14/17 19:00 70 13 113/72 93 Results - Laboratory Findings CBC and BMP: 06/14/17 04:00 06/14/17 03:48 PT/INR, D-dimer PT 12.0 Seconds (9.4-12.1) 06/13/17 17:47 Abnormal lab findings: Abnormal lab results WBC 15.2 K/mcL (4.3-11.1) H 06/14/17 04:00 Hgb 10.7 g/dL (11.5-15.4) L D 06/14/17 04:00 MCV 82.6 fL (83.0-100.0) L 06/14/17 04:00 MCH 24.8 pg (28.0-33.3) L 06/14/17 04:00 MCHC 30.1 g/dL (31.6-35.5) L 06/14/17 04:00 RDW 16.0 % (11.5-14.5) H 06/14/17 04:00 Neutrophils # 14.6 K/mcL (1.6-8.9) H 06/14/17 04:00 Lymphocytes # 0.2 K/mcL (0.6-4.6) L 06/14/17 04:00 Chloride 110 mEq/L (98-107) H 06/14/17 03:48 Glucose 154 mg/dL (70-105) H 06/14/17 03:48 POC Glucose 141 mg/dL (58-89) H 06/14/17 00:19 Calcium 7.7 mg/dL (8.6-10.3) L 06/14/17 03:48 Magnesium 1.5 mg/dL (1.6-2.6) L 06/14/17 03:48 - Microbiology Findings Microbiology Findings: Microbiology, Last 48 Hours 06/14/17 19:56 Sputum Culture - Final Sputum - Clinical Findings Intake & Output: Intake & Output 06/14/17 06/14/17 06/14/17 07:59 15:59 23:59 Intake Total 1307 / 1307 1100 / 1100 1350 / 1350 Output Total 300 / 300 300 / 300 275 / 275 Balance 1007 / 1007 800 / 800 1075 / 1075 Weight 81 kg - Attending Attestation I saw and evaluated this patient and my medical decision-making was reviewed with the Resident Physician. I agree with the documented findings, disposition and treatment plan as described except to the extent set forth below. We independently had [id number] contact with the patient Patient seen and examined at bedside Labs radiology, chart personally reviewed. Management was reviewed during multidisciplinary critical care rounds. METER READING CLERK: Patient is conscious oriented denies any headache . Pulm: Patient has CARLTON squamous cell ca finished 6 cycles of radiation patient declined chemotherapy . Patient might have some post obstructive pneumonia will give broad spectrum antibiotics Cards: Patient is hemodynamically stable yesterday blood pressure was borderline low , had LHC no active stents . To continue gentle diuresis FEN-GI:. To give salt restriction Renal:Lans output reviewed ID: No exact source if infection to continue broad spectrum antibiotics Heme/Onc:Labs reviewed . Patient had CARLTON squamous cell ca finished 6 cycles of radiotherapy . Endo: Glucose Monitored Integ/MSK: Skin Care per routine ICU Nursing Protocol to prevent ulcers. Lines: All lines examined without evidence of infection : Dispo: Can be transferred to Placed tele CODE: Full Code
[2017-06-14] MEDS: Piperacillin/Tazobactam 3.375 GM in 0.9 % Sodium Chloride Mini Bag 100 ML IVPB SCH ×2 (09:10→16:12)
--- NOTE | 2017-06-14 10:36 | Cardiology Progress Note ---
Date of Encounter: 06/14/17 Time of Encounter: 10:33 Assessment and Plan (1) Chest pain Current Visit: Yes Status: Acute Patient presented with chest pain. Due to concerning EKG she was taken for emergent cardiac catheterization. LHC showed mild non-obstructive CAD. Troponin negative. CTA negative for PE. CARLTON lung mass seen. Known non-small cell lung cancer. S/p 2 weeks radiation. Will check TTE to r/o pericardia effusion or structural heart disease. Qualifiers: Chest pain type: chest pain on breathing Qualified Code(s): R07.1 - Chest pain on breathing; R07.81 - Pleurodynia (2) CAD (coronary artery disease) Current Visit: Yes Status: Acute Mild non-obstructive CAD. LHC demonstrated 40% stenosis in the m LAD, 40% stenosis in the pLcx artery. EF preserved. Recommend asa, statin, and bb. Check TTE. Qualifiers: Coronary Disease-Associated Artery/Lesion type: [place] artery [place] vs. transplanted heart: [place] heart Associated angina: without angina Qualified Code(s): I25.10 - Atherosclerotic heart disease of [place] coronary artery without angina pectoris Discussion w patient/family: The assessment and plan as outlined above was discussed with the patient and/or family members who expressed understanding and agreement. All questions were answered. Thank you for involving us in the care of your patient. Please call with any questions. Subjective Principal diagnosis: Chest pain Interval history: Denies recurrent chest pain. B/p low overnight and she required levophed. Right groin sheath was used as arterial line. B/p stable. Nurse to d/c line. Objective Vital Signs, Last 4 Hours Temp Pulse Resp BP Pulse Ox 06/14/17 10:00 69 16 122/70 95 06/14/17 09:26 17 92 06/14/17 09:00 71 12 111/59 93 06/14/17 08:00 97.8 F 67 14 113/65 90 06/14/17 07:45 93 06/14/17 07:00 63 14 87/50 91 General: Conversant, No Apparent Distress HEENT: Atraumatic, Normocephaly, Mucus Membranes Moist Neck: No JVD, Normal carotid pulses Cardiac: Reg Rate and Rhythm, Normal S1 and S2, No Murmur Lungs: Normal Breath Sounds, No Wheeze, Rales, Rhonchi Neuro: Alert and responsive, No focal deficits noted Abdomen: Soft, Non-Tender Skin: No rashes noted on visualized skin Musculoskeletal: No Chest Wall Tenderness Extremities: No Clubbing, No Cyanosis, No Edema, Normal Pulses, Other (Right groin arterial line intact. No hematoma. ) Results 06/14/17 04:00 06/14/17 03:48 Lab Results 06/14/17 06/14/17 03:48 04:00 WBC 15.2 H Hgb 10.7 L D Hct 35.6 Plt Count 193 Sodium 137 Potassium 4.2 Chloride 110 H Carbon Dioxide 26 BUN 11 Creatinine 0.75 Glucose 154 H Calcium 7.7 L Magnesium 1.5 L - Imaging and Cardiology Echo: pending Cardiac cath: report reviewed - EKG Interpretation EKG results cardiology: personally reviewed - VTE Documentation of Mechanical Device: Intermittent pneumatic compression device Consult Discharge Plan - Plan Referrals: Susan Anderson MD [Primary Care Provider] -
[2017-06-14] MEDS: Aspirin 81 MG TAB.CHEW PO SCH (11:44)
[2017-06-14] MEDS: Nicotine 21 MG PATCH.TD24 TD SCH (14:33)
[2017-06-14] MEDS: MethylPREDNISolone 40 MG/ML VIAL IVP SCH (16:13)
[2017-06-14] MEDS: Melatonin 3 MG TABLET PO PRN (21:24)
[2017-06-15] MEDS: MethylPREDNISolone 40 MG/ML VIAL IVP SCH ×2 (00:41→08:28)
[2017-06-15] MEDS: Piperacillin/Tazobactam 3.375 GM in 0.9 % Sodium Chloride Mini Bag 100 ML IVPB SCH ×4 (00:41→23:57)
[2017-06-15] MEDS: OXYCODONE Oral CONC 10 MG/0.5 ML ORAL.SYG SL PRN ×4 (02:12→20:09)
[2017-06-15] MEDS: Ipratropium/Albuterol Neb 3 ML IH SCH ×4 (04:21→21:58)
[2017-06-15 04:33] LABS: Basophils % 0.1 %; Hematocrit 32.9 % (35.3-44.9); Immature Granulocytes % 0.9 % (0-4); Lymphocytes # 0.2 K/mcL (0.6-4.6); Lymphocytes % 1.6 %; Mean Corpuscular HGB Conc 29.8 g/dL (31.6-35.5); Mean Corpuscular Hemoglobin 24.3 pg (28.0-33.3); Mean Corpuscular Volume 81.6 fL (83.0-100.0); Mean Platelet Volume 10.6 fL (9.4-12.4); Monocytes # 0.5 K/mcL (0.0-1.3); Monocytes % 3.7 %; Neutrophils # 11.8 K/mcL (1.6-8.9); Platelet Count 159 K/mcL (140-400); Red Blood Count 4.03 M/mcL (3.82-4.97); Red Cell Distribution Width 16.3 % (11.5-14.5); Segmented Neutrophils % 93.7 %
[2017-06-15 04:38] LABS: Hemoglobin 9.8 g/dL (11.5-15.4)
[2017-06-15 04:45] LABS: BUN/Creatinine Ratio 20 (6-26); Blood Urea Nitrogen 15 mg/dL (8-23); Calcium 8.5 mg/dL (8.6-10.3); Carbon Dioxide 25 mEq/L (23-29); Chloride 113 mEq/L (98-107); Glucose 140 mg/dL (70-105); Osmolality,Calculated 291 (280-300); Potassium 4.2 mEq/L (3.5-5.1); Sodium 139 mEq/L (136-145); eGFR For African Americans > 60 (> 60); eGFR For Non-African Americans > 60 (> 60)
[2017-06-15] MEDS: 0.9 % Sodium Chloride 1,000 ML IVC SCH (04:49)
--- NOTE | 2017-06-15 07:45 | Pulmonology Progress Note ---
<Manny Zee - Last Filed: 06/15/17 11:41> Date of Encounter: 06/15/17 Time of Encounter: 07:45 Assessment and Plan (1) Chest pain Current Visit: Yes Status: Acute admitted for chest pain and concern of STEMI LHC performed emergently 06/13, UNREMARKABLE - mild atherosclerotic coronary artery disease and normal LV with normal contractility EF 60% known history of left upper lobe squamous cell carcinoma, s/p 6 radiation treatments - last recent treatment 06/12 cardiology consulted - medical management with ASA, statin, and BB rad onc consulted CT chest reported negative for PE, known CARLTON lung mass with possible superimposed pneumonia - patient afebrile with leukocytosis and normal lactate - cultures negative, de-escalate to Zosyn STABLE to transfer to telemetry Qualifiers: Chest pain type: chest pain on breathing Qualified Code(s): R07.1 - Chest pain on breathing; R07.81 - Pleurodynia (2) Respiratory failure Current Visit: Yes Status: Acute respiratory failure requiring oxygen supplementation secondary to squamous cell carcinoma, pneumonia, and COPD exacerbation continue nasal cannula and BiPAP at night wean O2 as tolerated, goal 92% CT chest negative for PE with possibly underlying pneumonia sputum and blood culture NGTD - de-escalated to Zosyn Tessalon sally for cough Qualifiers: Chronicity: unspecified Respiratory failure complication: hypoxia Qualified Code(s): J96.91 - Respiratory failure, unspecified with hypoxia (3) Pneumonia Current Visit: Yes Status: Acute respiratory failure secondary to multiple etiologies CT chest - possible superimposed pneumonia patient with hypoxia requiring 5L NC de-escalated antibiotics to Zosyn Qualifiers: Pneumonia type: due to unspecified organism Laterality: unspecified laterality Lung location: unspecified part of lung Qualified Code(s): J18.9 - Pneumonia, unspecified organism (4) Hypotension Current Visit: Yes Status: Acute patient became hypotensive requiring Levophed - currently off with MAP >65 chest pressure has improved continue to monitor cardiology consulted, recs appreciated - ECHO 06/15 -LVEF 55-60%, no pulmonary hypertension, no significant valvular dysfunction will restart Coreg at lower dose 6.25 mg BID Qualifiers: Hypotension type: idiopathic hypotension Qualified Code(s): I95.0 - Idiopathic hypotension (5) COPD (chronic obstructive pulmonary disease) Current Visit: Yes Status: Acute wheezing on exam continue scheduled bronchodilators switch steroids to Prednisone PO 40 mg no home oxygen requirement, keep O2 saturation >88%, wean as tolerated Qualifiers: COPD type: unspecified COPD Qualified Code(s): J44.9 - Chronic obstructive pulmonary disease, unspecified (6) Tobacco abuse Current Visit: Yes Status: Acute current smoker patient counseled on smoking cessation (7) Squamous cell carcinoma of left lung Current Visit: Yes Status: Acute follows with Dr. Mera and Dr. Fuentes, completed radiation treatment Rad Onc consulted (8) DVT prophylaxis Current Visit: Yes Status: Acute no signs of renal insufficiency, placed on Lovenox 40mg Subjective Principal diagnosis: Chest pain Interval history: Patient seen and examined at bedside. No acute events overnight. She is laying in bed eating her breakfast. She continues asked some chest pressure worse with coughing. She continues to have some sputum production which she reports as baseline, no change in color. She denies any shortness of breath despite being on 5 L nasal cannula. She reports stuffy nose and some sinus congestion. Denies any abdominal pain, nausea or vomiting. Her blood pressures have remained stable overnight, off Norepi. Objective PUL Vital signs: Last Vital Signs Temp 96.4 F L 06/15/17 04:59 Pulse 63 06/15/17 06:00 Resp 16 06/15/17 06:00 BP 144/71 06/15/17 06:00 Pulse Ox 93 06/15/17 06:00 General appearance: no acute distress, alert, other (follows commands, awake, conversant) Eyes: nonicteric ENT: oropharynx moist Neck: supple Effort: mildly labored Auscultation: bilateral: rales Cardiovascular: regular rate and rhythm Gastrointestinal: normoactive bowel sounds, soft, tender, non-distended Integumentary: normal Extremities: no cyanosis, no edema, no clubbing, pink and warm, pulses normal, no ischemia or petechiae Musculoskeletal: no deformities, other (chest wall tenderness on palpation) normal mental status, non-focal exam, pupils equal and round, motor strength normal and symmetric mood appropriate, affect normal Results - Laboratory Findings CBC and BMP: 06/15/17 04:09 06/15/17 04:09 PT/INR, D-dimer PT 12.0 Seconds (9.4-12.1) 06/13/17 17:47 Abnormal lab findings: Abnormal lab results WBC 12.6 K/mcL (4.3-11.1) H 06/15/17 04:09 Hgb 9.8 g/dL (11.5-15.4) L 06/15/17 04:09 Hct 32.9 % (35.3-44.9) L 06/15/17 04:09 MCV 81.6 fL (83.0-100.0) L 06/15/17 04:09 MCH 24.3 pg (28.0-33.3) L 06/15/17 04:09 MCHC 29.8 g/dL (31.6-35.5) L 06/15/17 04:09 RDW 16.3 % (11.5-14.5) H 06/15/17 04:09 Neutrophils # 11.8 K/mcL (1.6-8.9) H 06/15/17 04:09 Lymphocytes # 0.2 K/mcL (0.6-4.6) L 06/15/17 04:09 Chloride 113 mEq/L (98-107) H 06/15/17 04:09 Glucose 140 mg/dL (70-105) H 06/15/17 04:09 POC Glucose 129 mg/dL (58-89) H 06/14/17 23:56 Calcium 8.5 mg/dL (8.6-10.3) L 06/15/17 04:09 Magnesium 1.5 mg/dL (1.6-2.6) L 06/14/17 03:48 - Microbiology Findings Microbiology Findings: Microbiology, Last 48 Hours 06/14/17 19:56 Sputum Culture - Final Sputum - Clinical Findings Intake & Output: Intake & Output 06/14/17 06/14/17 06/15/17 15:59 23:59 07:59 Intake Total 1100 / 1100 1350 / 1350 1350 / 1350 Output Total 300 / 300 275 / 275 400 / 400 Balance 800 / 800 1075 / 1075 950 / 950 Weight 81 kg 79.4 kg - VTE Documentation of Mechanical Device: Intermittent pneumatic compression device Consult Discharge Plan - Plan Referrals: Susan Anderson MD [Primary Care Provider] - <Magdiel Samuels - Last Filed: 06/15/17 16:29> Date of Encounter: 06/15/17 Objective PUL Vital signs: Last Vital Signs Temp 98.2 F 06/15/17 11:15 Pulse 67 06/15/17 14:30 Resp 18 06/15/17 16:21 BP 149/82 06/15/17 14:30 Pulse Ox 92 06/15/17 16:21 Results - Laboratory Findings CBC and BMP: 06/15/17 04:09 06/15/17 04:09 PT/INR, D-dimer PT 12.0 Seconds (9.4-12.1) 06/13/17 17:47 Abnormal lab findings: Abnormal lab results WBC 12.6 K/mcL (4.3-11.1) H 06/15/17 04:09 Hgb 9.8 g/dL (11.5-15.4) L 06/15/17 04:09 Hct 32.9 % (35.3-44.9) L 06/15/17 04:09 MCV 81.6 fL (83.0-100.0) L 06/15/17 04:09 MCH 24.3 pg (28.0-33.3) L 06/15/17 04:09 MCHC 29.8 g/dL (31.6-35.5) L 06/15/17 04:09 RDW 16.3 % (11.5-14.5) H 06/15/17 04:09 Neutrophils # 11.8 K/mcL (1.6-8.9) H 06/15/17 04:09 Lymphocytes # 0.2 K/mcL (0.6-4.6) L 06/15/17 04:09 Chloride 113 mEq/L (98-107) H 06/15/17 04:09 Glucose 140 mg/dL (70-105) H 06/15/17 04:09 POC Glucose 129 mg/dL (58-89) H 06/14/17 23:56 Calcium 8.5 mg/dL (8.6-10.3) L 06/15/17 04:09 Magnesium 1.5 mg/dL (1.6-2.6) L 06/14/17 03:48 - Microbiology Findings Microbiology Findings: Microbiology, Last 48 Hours 06/13/17 21:27 Blood Culture - Preliminary Central Venous Catheter No growth. 06/13/17 20:20 Blood Culture - Preliminary Peripheral Venipuncture No growth. 06/14/17 19:56 Sputum Culture - Final Sputum - Clinical Findings Intake & Output: Intake & Output 06/15/17 06/15/17 06/15/17 07:59 15:59 23:59 Intake Total 1350 / 1350 1270 / 1270 Output Total 575 / 575 150 / 150 Balance 775 / 775 1120 / 1120 Weight 79.4 kg 81.1 kg 81.1 kg - Attending Attestation I examined this patient and my medical decision-making was reviewed with the Resident Physician. I agree with the documented findings, disposition and treatment plan as described except to the extent set forth below. We independently had [id number] contact with the patient Patient seen and examined at bedside Labs, radiology, chart personally reviewed. Management was reviewed during multidisciplinary critical care rounds. SHREDDER PICKER: No focal deficit awake and alert Pulm: Acute on chronic hypoxic respiratory failure secondary to pneumonia and COPD exacerbation complicated by underlying lung malignancy. Continue supplemental oxygen to keep saturation greater than 88% continue bronchodilators and steroids Cards: Concern for acute coronary syndrome status post left heart catheter no intervention she has medical seasonal need to continue to be treated. We are starting the patient back on dose of beta andrez. She briefly hypotensive overnight but that has resolved. Cardiology following FEN-GI: Advance diet as tolerated Renal: Urine output monitored ID: Treating for pneumonia with planned to de-escalate based upon culture and sensitivities Heme/Onc: She has lung cancer and has undergone radiation therapy with radiographic improvement I suspect that the worsening of her opacification at this time is related to pneumonia which is being treated Endo: Glucose Monitored Integ/MSK: Skin Care per routine ICU Nursing Protocol to prevent ulcers. Lines: All lines examined without evidence of infection : [facility]po[facility] CODE: Full
[2017-06-15] MEDS: Nicotine 21 MG PATCH.TD24 TD SCH (08:25)
[2017-06-15] MEDS: Aspirin 81 MG TAB.CHEW PO SCH (08:28)
--- NOTE | 2017-06-15 11:46 | Cardiology Progress Note ---
Date of Encounter: 06/15/17 Time of Encounter: 11:30 Assessment and Plan (1) Chest pain Current Visit: Yes Status: Acute Patient presented with chest pain. Due to concerning EKG she was taken for emergent cardiac catheterization. LHC showed mild non-obstructive CAD. Troponin negative. CTA negative for PE. [place] lung mass seen. Known non-small cell lung cancer. S/p 2 weeks radiation. TTE: LVEF 55-60%, no PH, no significant valvular dysfunction, normal wall motion Chest pain worsens with cough, likely pleuritic in etiology. Hx of left upper lobe lung mass, undergoing radiation therapy. No further cardiac testing warranted, Cardiology will sign-off. Qualifiers: Chest pain type: chest pain on breathing Qualified Code(s): R07.1 - Chest pain on breathing; R07.81 - Pleurodynia (2) CAD (coronary artery disease) Current Visit: Yes Status: Acute Mild non-obstructive CAD. LHC demonstrated 40% stenosis in the m LAD, 40% stenosis in the pLcx artery. EF preserved. Recommend asa, statin, and bb--resume BB when hemodynamically stable. TTE: EF normal, normal wall motion, no significant valvular dysfunction. Qualifiers: Coronary Disease-Associated Artery/Lesion type: [place] artery Elim [place] vs. transplanted heart: [place] heart Associated angina: without angina Qualified Code(s): I25.10 - Atherosclerotic heart disease of [place] coronary artery without angina pectoris Discussion w patient/family: The assessment and plan as outlined above was discussed with the patient and/or family members who expressed understanding and agreement. All questions were answered. Thank you for involving us in the care of your patient. Please call with any questions. The patient was discussed and reviewed with Dr. Farah, Cardiology will sign- off. Subjective Principal diagnosis: Chest pain Interval history: Seen and examined. Reports chest pain with cough. Objective Vital Signs, Last 4 Hours Pulse Resp BP Pulse Ox 06/15/17 10:00 79 20 140/67 92 06/15/17 09:59 18 92 06/15/17 09:00 73 20 136/72 92 06/15/17 08:00 66 18 150/82 91 General: Conversant, No Apparent Distress HEENT: Atraumatic, Normocephaly, Mucus Membranes Moist Cardiac: Reg Rate and Rhythm, Normal S1 and S2 Lungs: Other (decreased throughout) Neuro: Alert and responsive Abdomen: Soft Skin: No rashes noted on visualized skin Musculoskeletal: No Chest Wall Tenderness Extremities: No Edema, Normal Pulses Results 06/15/17 04:09 06/15/17 04:09 Lab Results 06/15/17 06/15/17 04:09 04:09 WBC 12.6 H Hgb 9.8 L Hct 32.9 L Plt Count 159 Sodium 139 Potassium 4.2 Chloride 113 H Carbon Dioxide 25 BUN 15 Creatinine 0.76 Glucose 140 H Calcium 8.5 L Active Medications Albuterol/Ipratropium (Duoneb) 3 ml IH [id number] RUDI Stop: 12/13/17 22:01 Last Admin: 06/15/17 09:59 Dose: 3 ml Albuterol/Ipratropium (Duoneb) 3 ml IH [id number] PRN PRN Reason: Shortness Of Breath/Wheezing Stop: 12/13/17 21:42 Aspirin (Aspirin) 81 mg PO DAILY RUDI Stop: 12/14/17 11:01 Last Admin: 06/15/17 08:28 Dose: 81 mg Atorvastatin Calcium (Lipitor) 40 mg PO HS RUDI Stop: 12/14/17 21:01 Last Admin: 06/14/17 20:23 Dose: 40 mg Benzonatate (Tessalon) 100 mg PO TID PRN PRN Reason: Cough Stop: 12/15/17 11:13 Carvedilol (Coreg) 6.25 mg PO BIDWM RUDI PRN Reason: Protocol Stop: 12/15/17 17:01 Enoxaparin Sodium (Lovenox) 40 mg SQ 0700 RUDI PRN Reason: Protocol Stop: 12/16/17 07:01 Guaifenesin (Mucinex) 600 mg PO BID PRN PRN Reason: Congestion Stop: 12/14/17 20:41 Last Admin: 06/14/17 21:24 Dose: 600 mg Piperacillin Sod/Tazobactam (Sod 3.375 gm/ Sodium Chloride) 100 mls @ 25 mls/ hr IVPB Q8HR RUDI Stop: 12/14/17 00:01 Last Admin: 06/15/17 08:24 Dose: 25 mls/hr Melatonin (Melatonin) 3 mg PO HS PRN PRN Reason: Insomnia Stop: 12/14/17 20:41 Last Admin: 06/14/17 21:24 Dose: 3 mg Naloxone HCl (Narcan) 0.4 mg IVP Q2MIN PRN PRN Reason: SEE COMMENTS Stop: 12/13/17 21:10 Nicotine (Nicoderm) 21 mg TD DAILY RUDI PRN Reason: Protocol Stop: 12/14/17 14:16 Last Admin: 06/15/17 08:25 Dose: 21 mg Ondansetron HCl (Zofran) 4 mg IVP Q4H PRN PRN Reason: Nausea And Vomiting Stop: 12/13/17 21:10 Oxycodone HCl (Oxycodone Oral Conc) 5 mg SL Q4H PRN; Protocol PRN Reason: mild to moderate pain Stop: 12/13/17 21:10 Oxycodone HCl (Oxycodone Oral Conc) 10 mg SL Q4H PRN; Protocol PRN Reason: Severe Pain Stop: 12/13/17 21:10 Last Admin: 06/15/17 08:30 Dose: 10 mg Prednisone (Prednisone) 40 mg PO DAILY [facility] Stop: 12/16/17 09:01 - Imaging and Cardiology Echo: report reviewed Cardiac cath: report reviewed Other Results: 12 hour tele: avg HR=67 SR. No significant event noted. - EKG Interpretation EKG results cardiology: personally reviewed - VTE Documentation of Mechanical Device: Intermittent pneumatic compression device Consult Discharge Plan - Plan Referrals: Susan Anderson MD [Primary Care Provider] -
--- NOTE | 2017-06-15 14:42 | Electrocardiograph Report ---
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
--- NOTE | 2017-06-15 14:43 | Electrocardiograph Report ---
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
[2017-06-15] MEDS ORDERED: Aminoglycoside Consult 1 EACH MC ONE (14:44)
--- NOTE | 2017-06-15 15:06 | Event Note ---
Date of Encounter: 06/15/17 Time of Encounter: 15:05 Patient accepted for transfer out of intensive care unit by admitting hospitalist, Dr. Jolly. Patient assigned to telemetry bed 2A37. Discussed the case , no further questions.
--- NOTE | 2017-06-15 16:00 | Rad Onc Consult Note ---
Radiation Oncology HPI - Oncology history Comments: 67-year-old female status post hypofractionated radiotherapy for a non-small cell lung cancer completed 06/12/17 Date: 06/15/17 Primary Care Provider: Susan Anderson History of present illness: Ms. Moya presented to [facility] with chest pain. She underwent CT PE protocol which was negative for PE and left against medical advice. However, she then called an ambulance to be transported to [place] where she was found to be hypoxic and hypotensive. Myocardial infarction was suspected, but ruled out with heart catheterization. Chest x-ray showed mass versus pneumonia. Blood and sputum cultures were negative, but patient had leukocytosis with a left shift. She was started on antibiotic therapy and steroids . She was aggressively fluid resuscitated, but still required some pressors. Over the past 24 hours since starting antibiotics, her hypoxia has improved and her blood pressure is stable. She is being transferred out of the ICU to the floor. She reports that she overall feels okay and is ready to go home, but does complain of continued coughing with clear sputum production as well as chest wall discomfort with cough and intermittently. Leukocytosis is mproving. Code Status: Full Code Past Medical History: arthritis, COPD, CVA, hypertension, malignancy, TIA Other History: hiatal hernia Surgical History: cholecystectomy, Tonsillectomy Smoking Status: Current every day smoker Smokeless Tobacco Status: No Alcohol use: rarely Drug use: none Family History -Oncology: heart disease, hypertension, stroke, cancer, other Oncology - Medications Aspirin [Lo-Dose Aspirin EC] 81 mg PO DAILY 04/24/17 [History] Carvedilol [Coreg] 25 mg PO BID 04/24/17 [History] Citalopram Hydrobromide [Citalopram HBr] 40 mg PO DAILY 04/24/17 [History] Docusate Sodium [Dok] 100 mg PO DAILY 04/24/17 [History] Ergocalciferol (VITAMIN D2) [Vitamin D] 400 unit PO DAILY 04/24/17 [History] Ferrous Sulfate 325 mg PO DAILY 04/24/17 [History] Lisinopril [Zestril] 40 mg PO DAILY 04/24/17 [History] Oxycodone HCl/Acetaminophen [Percocet 10-325 mg Tablet] 1 tab PO TID PRN [History] Vitamin B Complex Vit C No.4 [Super B Complex] 1 tab PO DAILY 04/24/17 [History] amLODIPine [Norvasc] 5 mg PO DAILY 04/24/17 [History] Promethazine [Phenergan] 12.5 - 25 mg PO Q6HR PRN #80 tablet 06/04/17 [Rx] Esomeprazole Magnesium [Nexium] 40 mg PO BID #60 capsule. 06/12/17 [Rx] 3 Allergy/AdvReac Type Severity Reaction Status Date / Time meloxicam [From Mobic] Allergy Anaphylaxis Verified 06/12/17 13:51 tetanus and diphtheria Allergy Swelling Verified 06/12/17 13:51 toxoids of Lip/Tongue/Throat Review of Systems Provider Comments: A 12 point review of systems was performed. Pertinent positives and negatives are listed below and in the history of present illness. All other systems negative. Cardio/Pulmonary: Chest Pain, Dyspnea Physical Exam - Vitals Vital Signs: Last Vital Signs Temp 98.2 F 06/15/17 11:15 Pulse 67 06/15/17 14:30 Resp 18 06/15/17 14:30 BP 149/82 06/15/17 14:30 Pulse Ox 92 06/15/17 14:30 Weight: 81.1 kg ECO - Consciousness/Orientation Level Of Consciousness: Awake, Alert, Appropriate, Follows Commands Patient Orientation: Person, Place, Time, Name, Age, Date of , Day of Month , Day of Week, Month, Year, Time of Day Physical Exam: General: Alert and oriented. Mental Status: Affect appropriate for circumstances HEENT: Sclerae anicteric. No mucositis or thrush. No other oral lesions or erythema. Skin: No rashes or petechiae. Lymph nodes: No cervical, supraclavicular, axillary, or inguinal adenopathy. Lungs: Clear to auscultation and percussion bilaterally. Cardiovascular: Regular rate and rhythm. No gallops, murmurs, or rubs. Abdomen: Soft, nontender; no organomegaly or masses palpable. Extremities: Bilateral arm and leg edema, symmetric. No calf swelling or tenderness. No joint deformity. Neurologic: Alert, cranial nerves II-XII intact; no focal weakness or sensory abnormalities. Oncology- Results - Labs Labs: Short CBC 06/15/17 Range/Units 04:09 WBC 12.6 H (4.3-11.1) K/mcL Hgb 9.8 L (11.5-15.4) g/dL Hct 32.9 L (35.3-44.9) % Plt Count 159 (140-400) K/mcL Neutrophils # 11.8 H (1.6-8.9) K/mcL BMP 06/15/17 04:09 Sodium 139 Potassium 4.2 Chloride 113 H Carbon Dioxide 25 BUN 15 Creatinine 0.76 Glucose 140 H Calcium 8.5 L - Assessment Assessment: Ms. Moya appears to have had pnemonia that is improving on antibiotics that was causing systemic effects just after completion of her radiotherapy. Chest x -ray images were reviewed and are difficult to discern responding mass versus pneumonia. During therapy, he mass was shrinking very well, and she must have had superimposed pneumonia that manifested quickly. I will see her back in the clinic as scheduled. I will obtain her CT images from [place] for review. She is clinically improving on antibiotics. Thank you for allowing me to participate in the care of this delightful lady. Sincerely, Freedom Holland MD Radiation Oncology [facility] - Patient Problem List (1) Lung cancer Status: Acute Code(s): C34.90 - Malignant neoplasm of unspecified part of unspecified bronchus or lung Qualifiers: Laterality: left Lung location: upper lobe of lung Qualified Code(s): C34.12 - Malignant neoplasm of upper lobe, left bronchus or lung SNOMED Code(s): 280264914 (2) COPD (chronic obstructive pulmonary disease) Status: Acute Code(s): J44.9 - Chronic obstructive pulmonary disease, unspecified Qualifiers: COPD type: unspecified COPD Qualified Code(s): J44.9 - Chronic obstructive pulmonary disease, unspecified SNOMED Code(s): 84050228 (3) Respiratory failure Status: Acute Code(s): J96.90 - Respiratory failure, unspecified, unspecified whether with hypoxia or hypercapnia Qualifiers: Chronicity: unspecified Respiratory failure complication: hypoxia Qualified Code(s): J96.91 - Respiratory failure, unspecified with hypoxia SNOMED Code(s): 334798240 (4) Pneumonia Status: Acute Code(s): J18.9 - Pneumonia, unspecified organism Qualifiers: Pneumonia type: due to unspecified organism Laterality: unspecified laterality Lung location: unspecified part of lung Qualified Code(s): J18.9 - Pneumonia, unspecified organism SNOMED Code(s): 230965499
[2017-06-15] MEDS: Melatonin 3 MG TABLET PO PRN (20:11)
[2017-06-15] MEDS: Benzonatate 100 MG CAPSULE PO PRN (20:15)
[2017-06-16] MEDS: OXYCODONE Oral CONC 10 MG/0.5 ML ORAL.SYG SL PRN ×3 (00:12→08:16)
[2017-06-16] MEDS: Ipratropium/Albuterol Neb 3 ML IH SCH ×2 (03:54→11:21)
[2017-06-16 04:24] LABS: Basophils % 0.1 %; Hematocrit 34.3 % (35.3-44.9); Hemoglobin 10.4 g/dL (11.5-15.4); Immature Granulocytes % 0.6 % (0-4); Lymphocytes # 0.4 K/mcL (0.6-4.6); Lymphocytes % 3.1 %; Mean Corpuscular HGB Conc 30.3 g/dL (31.6-35.5); Mean Corpuscular Hemoglobin 24.5 pg (28.0-33.3); Mean Corpuscular Volume 80.9 fL (83.0-100.0); Mean Platelet Volume 10.4 fL (9.4-12.4); Monocytes % 7.7 %; Neutrophils # 11.1 K/mcL (1.6-8.9); Platelet Count 210 K/mcL (140-400); Red Blood Count 4.24 M/mcL (3.82-4.97); Red Cell Distribution Width 16.6 % (11.5-14.5); Segmented Neutrophils % 88.5 %
[2017-06-16 04:42] LABS: BUN/Creatinine Ratio 23 (6-26); Blood Urea Nitrogen 19 mg/dL (8-23); Calcium 8.7 mg/dL (8.6-10.3); Carbon Dioxide 27 mEq/L (23-29); Chloride 112 mEq/L (98-107); Glucose 99 mg/dL (70-105); Osmolality,Calculated 292 (280-300); Potassium 3.9 mEq/L (3.5-5.1); Sodium 140 mEq/L (136-145); eGFR For African Americans > 60 (> 60); eGFR For Non-African Americans > 60 (> 60)
[2017-06-16] MEDS ORDERED: *HR* Enoxaparin 40 MG/0.4 ML SYRINGE SQ SCH (07:00)
[2017-06-16] MEDS: Nicotine 21 MG PATCH.TD24 TD SCH (08:13)
[2017-06-16] MEDS: Aspirin 81 MG TAB.CHEW PO SCH (08:13)
[2017-06-16] MEDS: Piperacillin/Tazobactam 3.375 GM in 0.9 % Sodium Chloride Mini Bag 100 ML IVPB SCH (08:18)
[2017-06-16] MEDS: Benzonatate 100 MG CAPSULE PO PRN (08:41)
[2017-06-16] MEDS ORDERED: predniSONE 20 MG TABLET PO SCH (09:00)
[2017-06-16 10:40] VITALS: BP 150/75
--- NOTE | 2017-06-16 11:44 | Discharge Summary ---
- NOTES TO OUTPATIENT PROVIDER Notes to Outpatient Provider: Follow-up with oncology regarding squamous cell cancer of the lung. Patient being discharged on home oxygen. Patient will complete treatment for pneumonia with antibiotics. Orders not resulted at time of discharge: Pending orders 06/13/17 20:20 Culture,Blood [BC] Stat 06/13/17 21:27 Culture,Blood,Additional [BC] Stat Date of Encounter: 06/16/17 Time of Encounter: 11:37 - Discharge Diagnosis (1) Chest pain Priority: Primary Status: Acute Qualifiers: Chest pain type: chest pain on breathing Qualified Code(s): R07.1 - Chest pain on breathing; R07.81 - Pleurodynia (2) Non-small cell lung cancer Priority: Secondary Status: Acute Qualifiers: Laterality: left Qualified Code(s): C34.92 - Malignant neoplasm of unspecified part of left bronchus or lung (3) History of CVA (cerebrovascular accident) Priority: Secondary Status: Acute (4) COPD exacerbation Priority: Secondary Status: Acute (5) DVT prophylaxis Priority: Secondary Status: Acute (6) Hypotension Priority: Secondary Status: Acute Qualifiers: Hypotension type: idiopathic hypotension Qualified Code(s): I95.0 - Idiopathic hypotension Hospital course: Ms. Moya is a 67 year old female patient with a history of some essential lung cancer, COPD who is undergoing radiation therapy was hospitalized here with chest pain and acute respiratory failure related to COPD exacerbation and pneumonia. Initially she was suspected of having acute ST segment changes and she underwent emergent left heart catheterization which did not show any obstructive lesion. She was then medically managed by cardiology. She did not have an elevation in her troponins. She was treated for pneumonia with IV antibiotics. She was also treated for COPD exacerbation with steroids and O2 supplementation. She has now improved significantly and is feeling much better. She does continue to require supplemental oxygen and would benefit from home oxygen. [id number] evaluation was completed today. Patient will be discharged on 3 L home oxygen. She will follow up with her primary care provider and lung specialist for further management. Discharge discussed with: patient, nurse - Time Spent with Patient Total time spent providing and/or coordinating discharge services: Greater than 30 minutes (45 min) - Discharge Medications Prescriptions: Albuterol Sulfate [Albuterol Inhaler] 2 puff IH Q4HR PRN #1 hfa.aer.ad PRN Reason: Shortness Of Breath Amoxicillin/Clavulanate [Augmentin] 875 mg PO BIDWM #14 tablet Atorvastatin [Lipitor] 40 mg PO HS #30 tablet Benzonatate [Tessalon] 100 mg PO TID PRN #30 capsule PRN Reason: Cough Budesonide/Formoterol 80/4.5 [Symbicort 80/4.5] 2 puff IH BID #1 hfa.aer.ad Carvedilol [Coreg] 6.25 mg PO BIDWM #60 tablet Doxycycline 100 mg PO BID #14 capsule GuaiFENesin ER [Mucinex] 600 mg PO BID PRN #30 tbbp.12hr PRN Reason: Congestion predniSONE [PredniSONE] 10 mg PO DAILY 8 Days tablet Tiotropium [Spiriva] 18 mcg IH 0700 #30 capsule Home Medications: Aspirin [Lo-Dose Aspirin EC] 81 mg PO DAILY 04/24/17 [History] Citalopram Hydrobromide [Citalopram HBr] 40 mg PO DAILY 04/24/17 [History] Docusate Sodium [Dok] 100 mg PO DAILY 04/24/17 [History] Ergocalciferol (VITAMIN D2) [Vitamin D] 400 unit PO DAILY 04/24/17 [History] Ferrous Sulfate 325 mg PO DAILY 04/24/17 [History] Lisinopril [Zestril] 40 mg PO DAILY 04/24/17 [History] Oxycodone HCl/Acetaminophen [Percocet 10-325 mg Tablet] 1 tab PO TID PRN [History] Vitamin B Complex Vit C No.4 [Super B Complex] 1 tab PO DAILY 04/24/17 [History] amLODIPine [Norvasc] 5 mg PO DAILY 04/24/17 [History] Promethazine [Phenergan] 12.5 - 25 mg PO Q6HR PRN #80 tablet 06/04/17 [Rx] Esomeprazole Magnesium [Nexium] 40 mg PO BID #60 capsule. 06/12/17 [Rx] Albuterol Sulfate [Albuterol Inhaler] 2 puff IH Q4HR PRN #1 hfa.aer.ad 06/16/17 [Rx] Amoxicillin/Clavulanate [Augmentin] 875 mg PO BIDWM #14 tablet 04/03/18 [Rx] Atorvastatin [Lipitor] 40 mg PO HS #30 tablet 06/16/17 [Rx] Benzonatate [Tessalon] 100 mg PO TID PRN #30 capsule 06/16/17 [Rx] Budesonide/Formoterol 80/4.5 [Symbicort 80/4.5] 2 puff IH BID #1 hfa.aer.ad 05/31 [Rx] Carvedilol [Coreg] 6.25 mg PO BIDWM #60 tablet 06/16/17 [Rx] Doxycycline 100 mg PO BID #14 capsule 06/16/17 [Rx] GuaiFENesin ER [Mucinex] 600 mg PO BID PRN #30 tbbp.12hr 06/16/17 [Rx] Tiotropium [Spiriva] 18 mcg IH 0700 #30 capsule 06/16/17 [Rx] predniSONE [PredniSONE] 10 mg PO DAILY 8 Days tablet 06/16/17 [Rx] Allergies/Adverse Reactions: 3 Allergy/AdvReac Type Severity Reaction Status Date / Time meloxicam [From Mobic] Allergy Anaphylaxis Verified 06/12/17 13:51 tetanus and diphtheria Allergy Swelling Verified 06/12/17 13:51 toxoids of Lip/Tongue/Throat Date of admission: 06/13/17 17:52 Primary care physician: Susan Anderson Consults: 06/13/17 20:09 Consult to Hospitalist [CONS] Stat Consulting Provider: Hospitalist Alcira Reason for Consult: ICU/medical management Time Notified: 20:09 Call Completed: Yes 06/13/17 21:14 Consult to Oncology Radiation [CONS] Routine Consulting Provider: Oncology Radiation [place] Reason for Consult: chest pain s/p radiation Call Completed: No Consult to Pulmonology [CONS] Routine Consulting Provider: Pulm [facility] [place] Reason for Consult: hypotension, needs pressor, chest pain Call Completed: No Discharging clinician: Susana Garrison Anticipated date of discharge: 06/16/17 - Constitutional Vitals: Temp Pulse Resp BP Pulse Ox 98 F 61 16 150/75 95 06/16/17 10:33 06/16/17 10:33 06/16/17 11:22 06/16/17 10:33 06/16/17 11:22 General appearance: Present: A&O X 3, severe distress, answers questions appropriately - Neck Neck exam general surgery: Present: supple, trachea midline. Absent: lymphadenopathy - Respiratory Respiratory exam: Present: prolonged expiratory phase, wheezes. Absent: accessory muscle use, rales, rhonchi - Cardiovascular Cardiovascular exam: Present: RRR, +S1, +S2. Absent: diastolic murmur, gallop, rubs, systolic murmur - GI/Abdominal GI/Abdominal exam: Present: normal bowel sounds, soft, no peritoneal signs. Absent: distended, tenderness - Extremities Exam Extremities exam: Present: warm, radial pulses palpable and symmetrical. Absent : calf tenderness, cyanotic, pedal edema - Patient Status Disposition: Home, Self-Care Condition: Good Functional capacity at discharge: independent ambulation Overall status at discharge: patient is progressing back to baseline - Discharge Instructions Instructions: Chronic Obstructive Pulmonary Disease (DC), Chest Pain (DC) Follow Up With: Susan Anderson MD [Primary Care Provider] - (in 1 -2 weeks) Magdiel Samuels MD [Partnered Physician] - (in 1-2 weeks) Additional Instructions: Follow-up with your medical office secretary in 1-2 weeks - Diet and Activity Activity: wear oxygen at all times Diet: low fat, low cholesterol, low salt diet - VTE Documentation of Mechanical Device: Intermittent pneumatic compression device
== END 2017-06-16 14:45 | disposition home or self-care (01) | DRG 193 ==
LOC: EMEROO 17:23 → SUATTDRO 17:52 → ICNU 17:52 → 2ANU 06-15 12:16
PROVIDERS: ADMIT Internal Medicine Cardiovascular Disease; ATTEND Internal Medicine

== ENCOUNTER 2017-07-15 22:44 | Inpatient (IN) ==
[2017-07-15] MEDS ORDERED: Isovue-370 500 ML INFUS..BTL IV ONE (23:10)
[2017-07-15] MEDS ORDERED: Ipratropium/Albuterol Neb 3 ML IH ONE (23:13)
--- NOTE | 2017-07-15 23:13 | Emergency Department Note ---
Disposition Clinical Impression: Pericardial disorder, Shortness of breath Chest pain Qualifiers: Chest pain type: unspecified Qualified Code(s): R07.9 - Chest pain, unspecified Lung cancer Qualifiers: Laterality: left Lung location: upper lobe of lung Qualified Code(s): C34.12 - Malignant neoplasm of upper lobe, left bronchus or lung Disposition: Admitted As Inpatient Condition: Good Referrals: Susan Anderson MD [Primary Care Provider] - Time of Disposition: 02:49 General Adult HPI - General Stated complaint: VANIA/low SPO2/lung CA Time Seen by Provider: 07/15/17 22:57 Nursing Notes Reviewed: Yes Vital Signs Reviewed: Yes - History of Present Illness HPI Narrative: Patient reporting a 2 day history of shortness of breath. States she does have a cough but this is chronic. States that that she can no longer get sputum up. Patient does have a history of lung cancer that she is being treated for with radiation of this time. Patient also reporting that her oxygen saturations decreased significantly while at home. Even after placing her back on her oxygen it still stayed in the 80s. - Related Data Home Medications Medication Instructions Recorded Confirmed Aspirin [Lo-Dose Aspirin EC] 81 mg PO DAILY 04/24/17 06/24/17 Citalopram Hydrobromide 40 mg PO DAILY 04/24/17 06/24/17 [Citalopram HBr] Docusate Sodium [Dok] 100 mg PO DAILY 04/24/17 06/24/17 Ergocalciferol (VITAMIN D2) 400 unit PO DAILY 04/24/17 06/24/17 [Vitamin D] Ferrous Sulfate 325 mg PO DAILY 04/24/17 06/24/17 Lisinopril [Zestril] 40 mg PO DAILY 04/24/17 06/24/17 Oxycodone HCl/Acetaminophen 1 tab PO TID PRN 04/24/17 06/24/17 [Percocet 10-325 mg Tablet] Vitamin B Complex Vit C No.4 1 tab PO DAILY 04/24/17 06/24/17 [Super B Complex] amLODIPine [Norvasc] 5 mg PO DAILY 04/24/17 06/24/17 Previous Rx's Medication Instructions Recorded Promethazine [Phenergan] 12.5 - 25 mg PO Q6HR PRN #80 tablet 06/04/17 Esomeprazole Magnesium [Nexium] 40 mg PO BID #60 capsule.dr 06/12/17 Albuterol Sulfate [Albuterol 2 puff IH Q4HR PRN #1 hfa.aer.ad 06/16/17 Inhaler] Atorvastatin [Lipitor] 40 mg PO HS #30 tablet 06/16/17 Benzonatate [Tessalon] 100 mg PO TID PRN #30 capsule 06/16/17 Budesonide/Formoterol 80/4.5 2 puff IH BID #1 hfa.aer.ad 06/16/17 [Symbicort 80/4.5] Carvedilol [Coreg] 6.25 mg PO BIDWM #60 tablet 06/16/17 Doxycycline 100 mg PO BID #14 capsule 06/16/17 GuaiFENesin ER [Mucinex] 600 mg PO BID PRN #30 tbbp.12hr 06/16/17 Tiotropium [Spiriva] 18 mcg IH 0700 #30 capsule 06/16/17 OxyCODONE/APAP 10/325 [Percocet 1 each PO Q6HR PRN 1 Days #4 tablet 07/02/17 10/325 MG] Allergies Allergy/AdvReac Type Severity Reaction Status Date / Time meloxicam [From [facility]] Allergy Anaphylaxis Verified 07/15/17 23:03 tetanus and diphtheria Allergy Swelling Verified 07/15/17 23:03 toxoids of Lip/Tongue/Throat nitroglycerin AdvReac See Verified 07/15/17 23:04 Comments All systems ED: reviewed and negative except as stated. Constitutional: Denies: fever, chills ENT ED: Denies: congestion Cardiovascular: Reports: chest pain. Denies: palpitations, syncope Respiratory: Reports: cough, dyspnea. Denies: wheezes, sputum production Gastrointestinal: Denies: abdominal pain, nausea, vomiting, diarrhea Genitourinary: Denies: urgency, dysuria, frequency Musculoskeletal: Denies: back pain, neck pain Integumentary: Denies: rash, abrasion Neurological: Denies: headache, weakness, numbness Psychiatric: Denies: anxiety, depression Past Medical History - Past Medical History Attestation: Yes The following information was validated with the patient. Source: patient Medical history: Reports: cancer, CHF, COPD, CVA, hyperlipidemia, hypertension, seizures Surgical history: Reports: non-contributory Psychiatric history: Reports: no psych history [employer] history: Reports: bilateral 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 - Social History Smoking Status: Current every day smoker Smokeless Tobacco Status: No Alcohol use: Reports: rarely Drug use: Reports: none Physical Exam - General Limitations: no limitations General appearance: alert, in no apparent distress - Head Head exam: atraumatic, normocephalic, normal inspection - Eye Eye exam: Present: normal appearance, PERRL, EOMI - ENT ENT exam: normal exam, normal oropharynx, mucous membranes moist - Neck Neck exam: Present: normal inspection, full ROM, trachea midline - Chest Chest inspection: Present: normal inspection, symmetric chest wall rise. Absent : tenderness - Respiratory Respiratory exam: Present: wheezes (Scant). Absent: respiratory distress, accessory muscle use - Cardiovascular Cardiovascular exam: Present: regular rate, normal rhythm, normal heart sounds - Abdominal Exam Abdominal exam: Present: soft, Non-Tender. Absent: tenderness, distention, guarding, rebound, rigidity - Extremities Exam Extremities exam: Present: normal inspection, full ROM. Absent: tenderness, pedal edema - Expanded Lower Extremity Exam Hip/Pelvis exam: Present: normal inspection, full ROM Upper leg exam: Present: normal inspection, full ROM Knee exam: Present: normal inspection, full ROM Lower leg exam: Present: normal inspection, full ROM Ankle exam: Present: normal inspection, full ROM Foot/toe exam: Present: normal inspection, full ROM Neurovascular/Tendon exam: Absent: motor deficit, sensory deficit, tendon deficit - Back Exam Back exam: Present: normal inspection, full ROM. Absent: tenderness - Neurological Exam Neurological exam: Present: alert, oriented X3 - Psychiatric Psychiatric exam: Present: normal affect, normal mood - Skin Skin exam: Present: warm, dry, intact, normal color Course Course Narrative: Female patient with a history of lung cancer who is undergoing radiation complaining of a 2 day history of shortness of breath and chest pain. She reports a cough that is productive. She chronically has this. Unable to produce anything with her cough. She denies any fevers recently. She has resting in bed. She states that earlier today while she was sitting her oxygen saturation dropped into the 70s. Family states that they put her oxygen on her and it only came up into the mid 80s. She is satting in the high 90s on 2 L of oxygen at this time. She not using accessory muscles and is able to speak in full sentences. Her lung sounds have some scant wheezing throughout. Due to patient's history of cancer as well as her chest pain and shortness of breath we will give CTA of patient's chest at this time. We will also do basic lab workup on patient. She is insistent that she will not stay in the emergency department however she will allow us to work. - Reevaluation(s) Reevaluation #1: Patient's creatinine is elevated. Due to patient's shortness of breath and chest pain and her recent history of cancer with radiation I am highly suspicious of a pulmonary embolus at this time. VQ scan likely will not be beneficial due to her cancer history. I feel that the need for imaging is at higher risk than the possibility of further kidney impairment. She has no history of renal issues. She does appear to be dehydrated clinically. We will hydrate patient at this time and get a CTA of the patient chest. Time: 00:10 Reevaluation #2: CTA patient's chest showed no signs of PE however she does have pericardial thickening. There is concern for metastatic disease to this area. I am concerned due to the patient's chest pain and this new finding. We are recommending admission to the patient. Time: 01:30 - Consultations Consultation #1: Dr Pichardo accepted Pt in stable condition. Time: 02:32 Vital Signs Temperature 98.7 F 07/15/17 23:05 Pulse Rate 77 07/15/17 23:05 Respiratory Rate 18 07/15/17 23:05 Blood Pressure 115/61 07/15/17 23:05 O2 Sat by Pulse Oximetry 96 07/15/17 23:05 Temperature 98.7 F 07/15/17 23:05 Pulse Rate 78 07/16/17 02:12 Respiratory Rate 16 07/16/17 02:12 Blood Pressure 104/56 07/16/17 02:12 O2 Sat by Pulse Oximetry 94 07/16/17 02:12 Oxygen Delivery Oxygen Delivery Nasal Cannula Medical Decision Making - Medical Records Medical records reviewed: Yes I reviewed the patient's medical records. - Lab Data Lab results reviewed: Yes I reviewed the patient's lab results. Result diagrams: 07/15/17 23:20 07/15/17 23:20 Lab Results 07/15/17 07/15/17 07/15/17 Range/Units 23:20 23:20 23:20 WBC 10.9 (4.3-11.1) K/mcL RBC 4.36 (3.82-4.97) M/mcL Hgb 10.7 L (11.5-15.4) g/dL Hct 35.1 L (35.3-44.9) % MCV 80.5 L (83.0-100.0) fL MCH 24.5 L (28.0-33.3) pg MCHC 30.5 L (31.6-35.5) g/dL RDW 18.9 H (11.5-14.5) % Plt Count 339 (140-400) K/mcL MPV 9.9 (9.4-12.4) fL Immature Gran % 0.4 (0-4) % Seg Neutrophils % 77.6 % Lymphocytes % 10.7 % Monocytes % 10.7 % Eosinophils % 0.4 % Basophils % 0.2 % Neutrophils # 8.4 (1.6-8.9) K/mcL Lymphocytes # 1.2 (0.6-4.6) K/mcL Monocytes # 1.2 (0.0-1.3) K/mcL Eosinophils # 0.0 (0.0-0.6) K/mcL Basophils # 0.0 (0.0-0.2) K/mcL Sodium 130 L (136-145) mEq/L Potassium 3.9 (3.5-5.1) mEq/L Chloride 98 (98-107) mEq/L Carbon Dioxide 25 (23-29) mEq/L BUN 26 H (8-23) mg/dL Creatinine 1.68 H (0.60-1.20) mg/dL Est GFR ( Amer) 37 L (> 60) Est GFR (Non-Af Amer) 30 L (> 60) BUN/Creatinine Ratio 15 (6-26) Glucose 135 H (70-105) mg/dL Calculated Osmolality 277 L (280-300) Lactic Acid 0.7 (0.5-2.2) mmol/L Calcium 9.2 (8.6-10.3) mg/dL Troponin I < 0.03 (< 0.04) ng/mL B-Natriuretic Peptide (Less than 100) pg/mL 05/02/18 Range/Units 23:20 WBC (4.3-11.1) K/mcL RBC (3.82-4.97) M/mcL Hgb (11.5-15.4) g/dL Hct (35.3-44.9) % MCV (83.0-100.0) fL MCH (28.0-33.3) pg MCHC (31.6-35.5) g/dL RDW (11.5-14.5) % Plt Count (140-400) K/mcL MPV (9.4-12.4) fL Immature Gran % (0-4) % Seg Neutrophils % % Lymphocytes % % Monocytes % % Eosinophils % % Basophils % % Neutrophils # (1.6-8.9) K/mcL Lymphocytes # (0.6-4.6) K/mcL Monocytes # (0.0-1.3) K/mcL Eosinophils # (0.0-0.6) K/mcL Basophils # (0.0-0.2) K/mcL Sodium (136-145) mEq/L Potassium (3.5-5.1) mEq/L Chloride (98-107) mEq/L Carbon Dioxide (23-29) mEq/L BUN (8-23) mg/dL Creatinine (0.60-1.20) mg/dL Est GFR ( Amer) (> 60) Est GFR (Non-Af Amer) (> 60) BUN/Creatinine Ratio (6-26) Glucose (70-105) mg/dL Calculated Osmolality (280-300) Lactic Acid (0.5-2.2) mmol/L Calcium (8.6-10.3) mg/dL Troponin I (< 0.04) ng/mL B-Natriuretic Peptide 107 H (Less than 100) pg/mL - Radiology Data Radiology results reviewed: Yes I reviewed the patient's radiology results. Chest X-Ray 07/15/17 22:57 IMPRESSION: Mild confluent airspace disease in the medial left upper lobe and lingula. Multifocal pneumonia suspected. Large hiatal hernia. Stable mild cardiomegaly. D/ / Prasanth Francisco MD / Prasanth Francisco MD Interpreting Provider: Prasanth Francisco MD Chest CTA 05/03/18 23:10 IMPRESSION: No evidence of a pulmonary embolus. The left upper lobe mass noted 04/30/2017 has decreased in size. Residual opacity likely represents postradiation change. Residual tumor cannot be excluded. Pericardial thickening/fluid may be secondary to radiation therapy. Metastatic disease not entirely excluded. D/ / Prasanth Francisco MD / Prasanth Francisco MD Interpreting Provider: Prasanth Francisco MD - EKG Data EKG #1 EKG attestation: Yes I reviewed and interpreted this EKG. EKG results narrative: Normal sinus rhythm at a rate of 78. NC interval is 147. Castration is 85. QT is 355. QTC is 388. No signs of acute ischemia. No previous EKG to compare to.
[2017-07-15 23:31] LABS: Basophils % 0.2 %; Eosinophils % 0.4 %; Hematocrit 35.1 % (35.3-44.9); Hemoglobin 10.7 g/dL (11.5-15.4); Immature Granulocytes % 0.4 % (0-4); Lymphocytes # 1.2 K/mcL (0.6-4.6); Lymphocytes % 10.7 %; Mean Corpuscular HGB Conc 30.5 g/dL (31.6-35.5); Mean Corpuscular Hemoglobin 24.5 pg (28.0-33.3); Mean Corpuscular Volume 80.5 fL (83.0-100.0); Mean Platelet Volume 9.9 fL (9.4-12.4); Monocytes # 1.2 K/mcL (0.0-1.3); Monocytes % 10.7 %; Neutrophils # 8.4 K/mcL (1.6-8.9); Platelet Count 339 K/mcL (140-400); Red Blood Count 4.36 M/mcL (3.82-4.97); Red Cell Distribution Width 18.9 % (11.5-14.5); Segmented Neutrophils % 77.6 %
[2017-07-15 23:56] LABS: BUN/Creatinine Ratio 15 (6-26); Blood Urea Nitrogen 26 mg/dL (8-23); Calcium 9.2 mg/dL (8.6-10.3); Carbon Dioxide 25 mEq/L (23-29); Chloride 98 mEq/L (98-107); Glucose 135 mg/dL (70-105); Osmolality,Calculated 277 (280-300); Potassium 3.9 mEq/L (3.5-5.1); Sodium 130 mEq/L (136-145); eGFR For African Americans 37 (> 60); eGFR For Non-African Americans 30 (> 60)
[2017-07-15 23:57] LABS: Troponin I < 0.03 ng/mL (< 0.04)
[2017-07-15] MEDS ORDERED: 0.9 % Sodium Chloride 1,000 ML IVC ONE (23:59)
[2017-07-16] MEDS ORDERED: *HR* Morphine Immed Rel 30 MG TABLET PO ONE (00:50)
[2017-07-16] MEDS ORDERED: *HR* FentaNYL (PF) 100 MCG/2 ML VIAL IVP ONE (01:28)
[2017-07-16] MEDS ORDERED: *HR* LORazepam 1 MG TABLET PO ONE (01:38)
[2017-07-16] MEDS ORDERED: 0.9 % Sodium Chloride 1,000 ML IVC ONE (02:38)
[2017-07-16] MEDS ORDERED: 0.9 % Sodium Chloride 1,000 ML ONE (02:41)
--- NOTE | 2017-07-16 02:41 | Internal Med History&Physical ---
Date of Encounter: 07/16/17 Time of Encounter: 02:39 Internal Medicine - H&P: HPI Chief complaint: Dyspnea Admitted From: Emergency Dept Plans for Post Hospital Care: Home History of present illness: Ms. Moya is a 67 year old female COPD on 2 L at night, hypertension, history of CVA, Non small cell lung cancer finished radiation therapy and not getting chemo who presents to the ED with complaints of low oxygenation at home. The patient at baseline uses 2 L of nasal cannula oxygen at night. Today she noted that her oxygenation was in the 70s and needed to use her O2 to prevent up into the 90s. Please note that the patient is heavily sedated in the ED as she received Ativan, fentanyl, and morphine and most of the history was obtained through her daughter, son and her were at bedside. She reportedly was agitated upon arrival. The patient would not wake up and answered me only with a couple words answers hardly staying awake. Apparently the patient for the last couple days has been complaining of chest pain across the upper chest that radiates to the left shoulder and into her back. The pain is easily reproducible upon touching. The pain is constant. She is also been noticing an increased frequency of her dry cough. She does have chronic cough. She has been short of breath. She is always cold. No reported fever, nausea , vomiting, headache, blurry vision, abdominal pain, diarrhea, constipation, urinary symptoms, or neurological symptoms. In the ED they were worried about a PE and a CTA of chest was done which came back with no PE. The left upper lobe mass was smaller in size. There was a mention of pericardial thickening/ fluid which may be secondary to radiation therapy. Metastatic disease is not excluded. Laboratory workup showed josue with creatinine of 1.68. The patient was given some IV fluids prior to the CTA. She has received a couple of breathing treatments. She does have audible wheezes still. Her oxygenation is in the 90s on 2 L in the ED. Otherwise hemodynamically stable. EKG with no ST or T-wave changes. First set of cardiac enzymes not elevated. Past Med Surg Social Fam HX - Past Medical History Medical history: cancer, CHF, COPD, CVA, hyperlipidemia, hypertension, seizures Psychiatric history: no psych history - Past Surgical History Surgical History: non-contributory - Social History Smoking Status: Current every day smoker Smokeless Tobacco Status: No Alcohol use: rarely Drug use: none Internal Medicine - H&P: Meds Aspirin [Lo-Dose Aspirin EC] 81 mg PO DAILY 04/24/17 [History] Citalopram Hydrobromide [Citalopram HBr] 40 mg PO DAILY 04/24/17 [History] Docusate Sodium [Dok] 100 mg PO DAILY 04/24/17 [History] Ergocalciferol (VITAMIN D2) [Vitamin D] 400 unit PO DAILY 04/24/17 [History] Ferrous Sulfate 325 mg PO DAILY 04/24/17 [History] Lisinopril [Zestril] 40 mg PO DAILY 04/24/17 [History] Oxycodone HCl/Acetaminophen [Percocet 10-325 mg Tablet] 1 tab PO TID PRN [History] Vitamin B Complex Vit C No.4 [Super B Complex] 1 tab PO DAILY 04/24/17 [History] amLODIPine [Norvasc] 5 mg PO DAILY 04/24/17 [History] Promethazine [Phenergan] 12.5 - 25 mg PO Q6HR PRN #80 tablet 06/04/17 [Rx] Esomeprazole Magnesium [Nexium] 40 mg PO BID #60 capsule. 06/12/17 [Rx] Albuterol Sulfate [Albuterol Inhaler] 2 puff IH Q4HR PRN #1 hfa.aer.ad 06/16/17 [Rx] Atorvastatin [Lipitor] 40 mg PO HS #30 tablet 06/16/17 [Rx] Benzonatate [Tessalon] 100 mg PO TID PRN #30 capsule 06/16/17 [Rx] Budesonide/Formoterol 80/4.5 [Symbicort 80/4.5] 2 puff IH BID #1 hfa.aer.ad 05/31 [Rx] Carvedilol [Coreg] 6.25 mg PO BIDWM #60 tablet 06/16/17 [Rx] Doxycycline 100 mg PO BID #14 capsule 06/16/17 [Rx] GuaiFENesin ER [Mucinex] 600 mg PO BID PRN #30 tbbp.12hr 06/16/17 [Rx] Tiotropium [Spiriva] 18 mcg IH 0700 #30 capsule 06/16/17 [Rx] OxyCODONE/APAP 10/325 [Percocet 10/325 MG] 1 each PO Q6HR PRN 1 Days #4 tablet 07/02/17 [Rx] 3 Allergy/AdvReac Type Severity Reaction Status Date / Time meloxicam [From [facility]] Allergy Anaphylaxis Verified 07/15/17 23:03 tetanus and diphtheria Allergy Swelling Verified 07/15/17 23:03 toxoids of Lip/Tongue/Throat nitroglycerin AdvReac See Verified 07/15/17 23:04 Comments All Systems PM: A 10-system review of systems was performed and is negative for pertinent findings except as documented above in the HPI. Review of systems: All systems reviewed are negative except for as mentioned above - Constitutional Vitals: Temp Pulse Resp BP Pulse Ox 98.7 F 78 16 104/56 94 07/15/17 23:05 07/16/17 02:12 07/16/17 02:12 07/16/17 02:12 07/16/17 02:12 Exam: GGEN: NAD, lethargic and sleepy. HEENT: AT, NC, No cyanosis, oral mucosa is moist, No JVD Lymphatics: No lymphadenoapthy Eyes: Extrocular muscles intact, anicteric CVS:RRR. S1, S2, No m/r/g RESP: Diminished and tight. Expiratory wheezes throughout the lung wright. ABD: Soft, NT, ND, +BS EXT: No edema, No rashes, 2+ DP NEURO: Nonfocal, CN II-XII intact, No focal motor or sensory deficits Psych: Cooperative, Not anxious or depressedal Internal Med - H&P Results - Labs CBC & Chem 7: 07/15/17 23:20 07/15/17 23:20 Labs: Short CBC 07/15/17 Range/Units 23:20 WBC 10.9 (4.3-11.1) K/mcL Hgb 10.7 L (11.5-15.4) g/dL Hct 35.1 L (35.3-44.9) % Plt Count 339 (140-400) K/mcL Neutrophils # 8.4 (1.6-8.9) K/mcL BMP 07/15/17 23:20 Sodium 130 L Potassium 3.9 Chloride 98 Carbon Dioxide 25 BUN 26 H Creatinine 1.68 H Glucose 135 H Calcium 9.2 Cardiac Enzymes 07/15/17 Range/Units 23:20 Troponin I < 0.03 (< 0.04) ng/mL - Impressions ITS Impressions Chest X-Ray 07/15/17 22:57 IMPRESSION: Mild confluent airspace disease in the medial left upper lobe and lingula. Multifocal pneumonia suspected. Large hiatal hernia. Stable mild cardiomegaly. D/ / Prasanth Francisco MD / Prasanth Francisco MD Interpreting Provider: Prasanth Francisco MD Chest CTA 07/16/17 23:10 IMPRESSION: No evidence of a pulmonary embolus. The left upper lobe mass noted 04/30/2017 has decreased in size. Residual opacity likely represents postradiation change. Residual tumor cannot be excluded. Pericardial thickening/fluid may be secondary to radiation therapy. Metastatic disease not entirely excluded. D/ / Prasanth Francisco MD / Prasanth Francisco MD Interpreting Provider: Prasanth Francisco MD - Assessment and plan (1) Hypoxia Current Visit: No Status: Acute Assessment and plan: Likely an exacerbation of COPD causing this. We will treat as below. (2) COPD exacerbation Current Visit: No Status: Acute Assessment and plan: We will start the patient on IV Solu-Medrol every 8 hours. Nebs scheduled. IV Levaquin. O2 support and wean down as tolerated. (3) Chest pain Current Visit: No Status: Acute Assessment and plan: This does not sound like typical chest pain. Less likely cardiac pain. Easily reducible on examination. The patient had similar chest pain about a month ago and was admitted and had a left heart catheterization that showed mild disease. For now we will trend cardiac enzymes and keep her on telemetry. We will check a limited echo given changes seen on a CTA. The patient had an echo last month that unremarkable and showed a preserved EF. Qualifiers: Chest pain type: unspecified Qualified Code(s): R07.9 - Chest pain, unspecified (4) JOSUE (acute kidney injury) Current Visit: No Status: Acute Assessment and plan: The patient received IV contrast for CTA chest. Received IV fluids prior to that. We will continue IV fluids and check labs in the morning. The patient has not had much oral intake over the last day or so as well. Avoid nephrotoxins. (5) Abnormal computed tomography angiography (CTA) Current Visit: No Status: Acute Assessment and plan: CTA chest mentioned something about pericardial thickening/fluid which may be secondary to radiation therapy versus metastatic disease. This may be just a nonspecific finding. Will order a limited echo for now. Patient is hemodynamically stable. (6) Non-small cell lung cancer Current Visit: No Status: Acute Assessment and plan: Status post radiation. No chemotherapy. Follow-up with oncology. Qualifiers: Laterality: left Qualified Code(s): C34.92 - Malignant neoplasm of unspecified part of left bronchus or lung (7) History of CVA (cerebrovascular accident) Current Visit: No Status: Acute Assessment and plan: Continue aspirin and statin. (8) Hypertension Current Visit: No Status: Acute Assessment and plan: Blood pressure is stable. Resume home antihypertensives. Hold lisinopril due to JOSUE. Qualifiers: Hypertension type: essential hypertension Qualified Code(s): I10 - Essential (primary) hypertension (9) DVT prophylaxis Current Visit: No Status: Acute Assessment and plan: Heparin subcutaneous - Time Spent With Patient Total time spent is greater than 50% in coordination of care (as documented) at patient's floor/unit and/or counseling patient:
[2017-07-16] MEDS ORDERED: 0.9 % Sodium Chloride 1,000 ML IVC SCH (02:45)
[2017-07-16] MEDS ORDERED: 0.9 % Sodium Chloride 500 ML IVC ONE (02:45)
[2017-07-16] MEDS ORDERED: Naloxone 0.4 MG/ML INJ IVP PRN (02:46)
[2017-07-16] MEDS ORDERED: Acetaminophen 325 MG TABLET PO PRN (02:46)
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
[2017-07-16] MEDS: Ipratropium/Albuterol Neb 3 ML IH SCH ×5 (03:26→23:45)
[2017-07-16] MEDS ORDERED: Hydrocortisone Sodium Succ 100 MG/2 ML VIAL IVP ONE (03:52)
[2017-07-16] MEDS ORDERED: Levofloxacin 750 MG/150 ML 750 MG/150 ML BAG IVPB SCH (04:00)
[2017-07-16] MEDS ORDERED: Levofloxacin 500 MG/100 ML 500 MG/100 ML BAG IVPB SCH (04:00)
[2017-07-16 05:41] LABS: Basophils % 0.1 %; Eosinophils % 0.4 %; Hematocrit 30.7 % (35.3-44.9); Hemoglobin 9.3 g/dL (11.5-15.4); Immature Granulocytes % 0.4 % (0-4); Lymphocytes # 0.8 K/mcL (0.6-4.6); Lymphocytes % 9.6 %; Mean Corpuscular HGB Conc 30.3 g/dL (31.6-35.5); Mean Corpuscular Hemoglobin 24.6 pg (28.0-33.3); Mean Corpuscular Volume 81.2 fL (83.0-100.0); Monocytes # 0.9 K/mcL (0.0-1.3); Monocytes % 10.7 %; Neutrophils # 6.6 K/mcL (1.6-8.9); Platelet Count 271 K/mcL (140-400); Red Blood Count 3.78 M/mcL (3.82-4.97); Red Cell Distribution Width 18.9 % (11.5-14.5); Segmented Neutrophils % 78.8 %
[2017-07-16 06:02] LABS: Calcium 8.3 mg/dL (8.6-10.3); Magnesium 1.7 mg/dL (1.6-2.6); Potassium 4.1 mEq/L (3.5-5.1)
[2017-07-16] MEDS ORDERED: amLODIPine 5 MG TABLET PO SCH (09:00)
[2017-07-16] MEDS: *HR* Heparin 5,000 UNIT/ML VIAL SQ SCH ×3 (09:01→21:46)
[2017-07-16] MEDS: Cholecalciferol (D-3) 1,000 UNIT TABLET PO SCH (09:01)
[2017-07-16] MEDS: methylPREDNISolone 125 MG/2 ML VIAL IVP SCH ×2 (09:03→15:56)
[2017-07-16] MEDS: Budesonide/Formoterol 80/4.5 MDI IH SCH ×2 (10:39→19:30)
--- NOTE | 2017-07-16 12:55 | Event Note ---
Date of Encounter: 07/16/17 Time of Encounter: 12:49 Patient continues to have wheezing and cough. She feels congested but is not bringing up any phlegm today. Renal function is improving. Continue bronchodilators and steroids. Continue Levaquin. Patient has also been hypotensive since this morning. Responding to IV fluids. Will monitor. Lactic acid normal. She denies any dizziness or lightheadedness. Limited echo shows small to moderate pericardial effusion with no tamponade. We will consult cardiology for recommendations. Acute kidney injury: Present on admission. Creatinine 1.68. Improved with IV hydration.
[2017-07-16] MEDS ORDERED: *HR* OxyCODONE/APAP 5/325 TABLET PO PRN (14:48)
[2017-07-16] MEDS ORDERED: Acetylcysteine 10% 2 ML INHSOL IH SCH (16:00)
--- NOTE | 2017-07-16 16:13 | Electrocardiograph Report ---
[address] [place], [place] [address] Test Date: 2017-07-15 Pat Name: Pina Moya Department: 103 Room: 05 Gender: F Insurance Writer: STEPHEN : [id number] Requested By: Charlotte Crocker Order Number: [id number] Reading MD: Sonia Yost Measurements Intervals [place] Rate: 78 P: 12 TX: 147 QRS: 33 QRSD: 85 T: 65 QT: 355 QTc: 388 Interpretive Statements SINUS RHYTHM NONSPECIFIC ST & T-WAVE ABNORMALITY Electronically Signed On 07-16-2017 16:11:56 EDT by Sonia Yost
[2017-07-16] MEDS ORDERED: MORPHINE SUL Oral CONC 10 MG/0.5 ML ORAL.SYG PO PRN (17:22)
[2017-07-16] MEDS ORDERED: Acetylcysteine 10% 2 ML INHSOL IH PRN (17:24)
[2017-07-16] MEDS ORDERED: *HR* LORazepam Oral Conc 2 MG/ML SL PRN (17:25)
--- NOTE | 2017-07-16 17:28 | Event Note ---
Date of Encounter: 07/16/17 Time of Encounter: 17:00 Discussed plan of care with patient and family. Patient wishes to just be comfortable and go home. As such, will change CODE STATUS to comfort care. We will consult palliative care and make arrangements for hospice. We will minimize any further interventions. Stop lab work. We will stop IV antibiotics at this time. Start patient on morphine and Ativan for comfort.
[2017-07-16] MEDS: MORPHINE SUL Oral CONC 10 MG/0.5 ML ORAL.SYG PO PRN (17:51)
[2017-07-16] MEDS: Nicotine 21 MG PATCH.TD24 TD SCH (17:59)
[2017-07-17] MEDS: Ipratropium/Albuterol Neb 3 ML IH SCH ×3 (03:18→11:49)
[2017-07-17] MEDS: *HR* Heparin 5,000 UNIT/ML VIAL SQ SCH (06:26)
[2017-07-17] MEDS: Budesonide/Formoterol 80/4.5 MDI IH SCH (07:53)
[2017-07-17] MEDS: Cholecalciferol (D-3) 1,000 UNIT TABLET PO SCH (08:58)
[2017-07-17] MEDS: Nicotine 21 MG PATCH.TD24 TD SCH (08:58)
[2017-07-17] MEDS: MORPHINE SUL Oral CONC 10 MG/0.5 ML ORAL.SYG PO PRN ×2 (08:59→10:11)
[2017-07-17 11:12] VITALS: BP 144/71
[2017-07-17] MEDS ORDERED: *HR* OxyCODONE Immed Rel 15 MG TABLET PO PRN (11:16)
--- NOTE | 2017-07-17 11:38 | Discharge Summary ---
- NOTES TO OUTPATIENT PROVIDER Notes to Outpatient Provider: Patient admitted with acute COPD exacerbation and acute on chronic respiratory failure with underlying lung cancer. We will discharge today on hospice per patient and family request Date of Encounter: 07/17/17 Time of Encounter: 11:37 - Discharge Diagnosis (1) Acute and chronic respiratory failure with hypoxia Priority: Primary Status: Acute (2) COPD exacerbation Priority: Secondary Status: Acute (3) Non-small cell lung cancer Priority: Secondary Status: Acute Qualifiers: Laterality: left Qualified Code(s): C34.92 - Malignant neoplasm of unspecified part of left bronchus or lung (4) History of CVA (cerebrovascular accident) Priority: Secondary Status: Acute (5) Hypertension Priority: Secondary Status: Acute Qualifiers: Hypertension type: essential hypertension Qualified Code(s): I10 - Essential (primary) hypertension (6) DVT prophylaxis Priority: Secondary Status: Acute (7) JOSUE (acute kidney injury) Priority: Secondary Status: Acute (8) Hypoxia Priority: Secondary Status: Acute (9) Chest pain Priority: Secondary Status: Acute Qualifiers: Chest pain type: pleurodynia Qualified Code(s): R07.81 - Pleurodynia (10) Abnormal computed tomography angiography (CTA) Priority: Secondary Status: Acute Hospital course: Ms. Moya is a 67 year old female patient with recently diagnosed non-small cell lung cancer who underwent radiation treatment to last month presented to the ER with worsening shortness of breath. She was diagnosed with acute COPD exacerbation with acute respiratory failure with hypoxia. She was started on treatment with bronchodilators, intravenous steroids and O2 supplementation. Given her cancer and overall proved poor prognosis, patient did not want any further treatment and wished to go home on hospice. As such CODE STATUS has been changed to comfort care and after discussing with palliative care, patient will be discharged home with hospice today. Patient and family are in agreement with the treatment plan. She is willing to take short course of antibiotics and steroids for her current episode of COPD. She will be discharged on Levaquin and prednisone for 5 days. Discharge discussed with: patient, family, nurse, case management, publicity consultant - Time Spent with Patient Total time spent providing and/or coordinating discharge services: Less than 30 minutes (25 min) - Discharge Medications Prescriptions: Morphine Sulfate SR (12 HR) [MS Contin] 1 tab PO Q12HR 4 Days #8 tab levoFLOXacin [Levofloxacin] 500 mg PO Q48H #3 tablet LORazepam [Ativan] 1 mg PO QID PRN 4 Days #16 tablet PRN Reason: Anxiety OxyCODONE Immed Rel [Roxicodone 15 MG] 15 mg PO Q3H PRN 4 Days #24 tablet PRN Reason: Breakthrough Pain predniSONE [PredniSONE] 40 mg PO DAILY #10 tablet Sennosides/Docusate Sodium [Senna Plus] 2 each PO BID 4 Days #16 tablet Home Medications: Aspirin [Lo-Dose Aspirin EC] 81 mg PO DAILY 04/24/17 [History] Citalopram Hydrobromide [Citalopram HBr] 40 mg PO DAILY 04/24/17 [History] Ergocalciferol (VITAMIN D2) [Vitamin D] 400 unit PO DAILY 04/24/17 [History] Ferrous Sulfate 325 mg PO DAILY 04/24/17 [History] Lisinopril [Zestril] 40 mg PO DAILY 04/24/17 [History] Vitamin B Complex Vit C No.4 [Super B Complex] 1 tab PO DAILY 04/24/17 [History] amLODIPine [Norvasc] 5 mg PO DAILY 04/24/17 [History] Promethazine [Phenergan] 12.5 - 25 mg PO Q6HR PRN #80 tablet 06/04/17 [Rx] Esomeprazole Magnesium [Nexium] 40 mg PO BID #60 capsule.dr 06/12/17 [Rx] Albuterol Sulfate [Albuterol Inhaler] 2 puff IH Q4HR PRN #1 hfa.aer.ad 06/16/17 [Rx] Atorvastatin [Lipitor] 40 mg PO HS #30 tablet 06/16/17 [Rx] Benzonatate [Tessalon] 100 mg PO TID PRN #30 capsule 06/16/17 [Rx] Budesonide/Formoterol 80/4.5 [Symbicort 80/4.5] 2 puff IH BID #1 hfa.aer.ad 05/31 [Rx] Carvedilol [Coreg] 6.25 mg PO BIDWM #60 tablet 06/16/17 [Rx] GuaiFENesin ER [Mucinex] 600 mg PO BID PRN #30 tbbp.12hr 06/16/17 [Rx] Tiotropium [Spiriva] 18 mcg IH 0700 #30 capsule 06/16/17 [Rx] OxyCODONE/APAP 10/325 [Percocet 10/325 MG] 1 each PO Q6HR PRN 1 Days #4 tablet 07/02/17 [Rx] LORazepam [Ativan] 1 mg PO QID PRN 4 Days #16 tablet 07/17/17 [Rx] Morphine Sulfate SR (12 HR) [MS Contin] 1 tab PO Q12HR 4 Days #8 tab 07/17/17 [ Rx] OxyCODONE Immed Rel [Roxicodone 15 MG] 15 mg PO Q3H PRN 4 Days #24 tablet [Rx] Sennosides/Docusate Sodium [Senna Plus] 2 each PO BID 4 Days #16 tablet [Rx] levoFLOXacin [Levofloxacin] 500 mg PO Q48H #3 tablet 07/17/17 [Rx] predniSONE [PredniSONE] 40 mg PO DAILY #10 tablet 07/17/17 [Rx] Allergies/Adverse Reactions: 3 Allergy/AdvReac Type Severity Reaction Status Date / Time meloxicam [From Mobic] Allergy Anaphylaxis Verified 07/16/17 06:55 tetanus and diphtheria Allergy Swelling Verified 07/16/17 06:55 toxoids of Lip/Tongue/Throat nitroglycerin AdvReac See Verified 07/16/17 06:55 Comments Date of admission: 07/16/17 04:11 Primary care physician: Pati Castro MD Consults: 07/16/17 05:53 Consult to Nutrition [CONS] Routine Comment: Consulting Provider: NUTRITION Reason for Dietary Consult: MST Score 07/16/17 17:23 Consult to Palliative Care [CONS] Routine Comment: Consulting Provider: Palliative Care [place] Reason for Consult: Hospice request Call Completed: No Consult to Skelp Processor [CONS] Routine Reason for SW Consult: Hospice Discharging clinician: Susana Garrison Anticipated date of discharge: 07/17/17 - Constitutional Vitals: Temp Pulse Resp BP Pulse Ox 97.1 F L 79 16 144/71 90 07/17/17 11:10 07/17/17 11:10 07/17/17 11:10 07/17/17 11:10 07/17/17 11:10 General appearance: Present: cooperative, mild distress, A&O X 3, pleasant, answers questions appropriately - Neck Neck exam general surgery: Present: supple, trachea midline. Absent: lymphadenopathy - Respiratory Respiratory exam: Present: prolonged expiratory phase, wheezes. Absent: accessory muscle use, rales, rhonchi - Cardiovascular Cardiovascular exam: Present: RRR, +S1, +S2. Absent: diastolic murmur, gallop, rubs, systolic murmur - GI/Abdominal GI/Abdominal exam: Present: normal bowel sounds, soft, no peritoneal signs. Absent: distended, tenderness - Extremities Exam Extremities exam: Present: warm, radial pulses palpable and symmetrical. Absent : calf tenderness, cyanotic, pedal edema - Neurological Exam Neurological exam: Present: CN II-XII intact, oriented X3, no focal deficits, strengths equal and symetr throughout. Absent: facial droop, speech deficit - Skin Skin exam: Present: dry, intact - Patient Status Disposition: Hospice - Home Condition: Good Functional capacity at discharge: wheelchair bound Overall status at discharge: patient is progressing back to baseline - Discharge Instructions Instructions: Lorazepam (By mouth), Prednisone (By mouth), Laxative, Stimulant (By mouth), Morphine, Rapid Release (By mouth), Oxycodone, Rapid Release (By mouth), Levofloxacin (By mouth), Morphine/Naltrexone (By mouth), Chest Pain (DC) , Acute Respiratory Distress Syndrome (DC), Chronic Obstructive Pulmonary Disease (DC) Follow Up With: Pati Castro MD [Primary Care Provider] - 07/24/17 10:00 am (Your appointment for 08-06-17 @ 1100 has been cancelled) - Diet and Activity Activity: increase activity as tolerated Diet: advance to your usual diet
--- NOTE | 2017-07-17 11:46 | Physician Discharge Referral ---
Home Health/Hosp Referral Info Transfer to: Hospice Provider in Charge Post Discharge: PCP - Diagnosis (1) Acute and chronic respiratory failure with hypoxia Priority: Primary Status: Acute (2) COPD exacerbation Priority: Secondary Status: Acute (3) Non-small cell lung cancer Priority: Secondary Status: Acute (4) History of CVA (cerebrovascular accident) Priority: Secondary Status: Acute (5) Hypertension Priority: Secondary Status: Acute (6) DVT prophylaxis Priority: Secondary Status: Acute (7) JOSUE (acute kidney injury) Priority: Secondary Status: Acute (8) Hypoxia Priority: Secondary Status: Acute (9) Chest pain Priority: Secondary Status: Acute (10) Abnormal computed tomography angiography (CTA) Priority: Secondary Status: Acute - Respiratory Orders Oxygen / L per min (As per comfort) Smoking Cessation: Smoking cessation has been advised. For more information, call the [place] Tobacco Quit Line at 0-564-XVUL-NOW. - Diet/Nutrition Diet/Nutrition Orders: Regular - Activity Activity Orders: Walker - Services Needed Following services are medically necessary services: Nursing, Med Social Work - Transfer Medications Prescriptions: Morphine Sulfate SR (12 HR) [MS Contin] 1 tab PO Q12HR 4 Days #8 tab levoFLOXacin [Levofloxacin] 500 mg PO Q48H #3 tablet LORazepam [Ativan] 1 mg PO QID PRN 4 Days #16 tablet PRN Reason: Anxiety OxyCODONE Immed Rel [Roxicodone 15 MG] 15 mg PO Q3H PRN 4 Days #24 tablet PRN Reason: Breakthrough Pain predniSONE [PredniSONE] 40 mg PO DAILY #10 tablet Sennosides/Docusate Sodium [Senna Plus] 2 each PO BID 4 Days #16 tablet Home Medications: Aspirin [Lo-Dose Aspirin EC] 81 mg PO DAILY 04/24/17 [History] Citalopram Hydrobromide [Citalopram HBr] 40 mg PO DAILY 04/24/17 [History] Ergocalciferol (VITAMIN D2) [Vitamin D] 400 unit PO DAILY 04/24/17 [History] Ferrous Sulfate 325 mg PO DAILY 04/24/17 [History] Lisinopril [Zestril] 40 mg PO DAILY 04/24/17 [History] Vitamin B Complex Vit C No.4 [Super B Complex] 1 tab PO DAILY 04/24/17 [History] amLODIPine [Norvasc] 5 mg PO DAILY 04/24/17 [History] Promethazine [Phenergan] 12.5 - 25 mg PO Q6HR PRN #80 tablet 06/04/17 [Rx] Esomeprazole Magnesium [Nexium] 40 mg PO BID #60 capsule.dr 06/12/17 [Rx] Albuterol Sulfate [Albuterol Inhaler] 2 puff IH Q4HR PRN #1 hfa.aer.ad 06/16/17 [Rx] Atorvastatin [Lipitor] 40 mg PO HS #30 tablet 06/16/17 [Rx] Benzonatate [Tessalon] 100 mg PO TID PRN #30 capsule 06/16/17 [Rx] Budesonide/Formoterol 80/4.5 [Symbicort 80/4.5] 2 puff IH BID #1 hfa.aer.ad 05/31 [Rx] Carvedilol [Coreg] 6.25 mg PO BIDWM #60 tablet 06/16/17 [Rx] GuaiFENesin ER [Mucinex] 600 mg PO BID PRN #30 tbbp.12hr 06/16/17 [Rx] Tiotropium [Spiriva] 18 mcg IH 0700 #30 capsule 06/16/17 [Rx] OxyCODONE/APAP 10/325 [Percocet 10/325 MG] 1 each PO Q6HR PRN 1 Days #4 tablet 07/02/17 [Rx] LORazepam [Ativan] 1 mg PO QID PRN 4 Days #16 tablet 07/17/17 [Rx] Morphine Sulfate SR (12 HR) [MS Contin] 1 tab PO Q12HR 4 Days #8 tab 07/17/17 [ Rx] OxyCODONE Immed Rel [Roxicodone 15 MG] 15 mg PO Q3H PRN 4 Days #24 tablet [Rx] Sennosides/Docusate Sodium [Senna Plus] 2 each PO BID 4 Days #16 tablet [Rx] levoFLOXacin [Levofloxacin] 500 mg PO Q48H #3 tablet 07/17/17 [Rx] predniSONE [PredniSONE] 40 mg PO DAILY #10 tablet 07/17/17 [Rx] Allergies/Adverse Reactions: 3 Allergy/AdvReac Type Severity Reaction Status Date / Time meloxicam [From Mobic] Allergy Anaphylaxis Verified 07/16/17 06:55 tetanus and diphtheria Allergy Swelling Verified 07/16/17 06:55 toxoids of Lip/Tongue/Throat nitroglycerin AdvReac See Verified 07/16/17 06:55 Comments Certification: Further, I certify that my clinical findings support that this patient is homebound (i.e. absences from home require considerable and taxing effort and are for medical reasons or hinduism services or infrequently or short duration when for other reasons) because: Homebound Reason: Patient requires assistance of a person or device to safely leave home, Severity of cardiac or pulmonary status limits activity tolerance Attestation: My signature below is to certify that this patient is under my care and that I, or nurse practitioner, or a physician's kindergarten teacher assistant working with me, has a face-to -face encounter with this patient.
--- NOTE | 2017-07-17 12:40 | Palliative - Consult Note ---
Date of Encounter: 07/17/17 Time of Encounter: 11:00 - Assessment and Plan (1) Cancer related pain Current Visit: Yes Status: Acute Assessment and plan: Patient was utilizing her Percocet above and beyond what was prescribed according to family. Patient stated it was taking a larger amount to control her pain. The low dose Roxanol she is receiving here has not been very helpful. Discussed initiatiing long acting opioid to better control her pain. Based on the amount of Percocet she takes at home, will begin MS Contin 30 bid. Will D/C percocet and transition to Oxycodone 15mg every 3 hours for breakthrough. Discussed with pt and family, since she is going home, hospice will need updated on her response to the new medications. (2) Lung cancer Current Visit: No Status: Acute Qualifiers: Laterality: left Lung location: upper lobe of lung Qualified Code(s): C34.12 - Malignant neoplasm of upper lobe, left bronchus or lung (3) Non-small cell lung cancer Current Visit: No Status: Acute Qualifiers: Laterality: left Qualified Code(s): C34.92 - Malignant neoplasm of unspecified part of left bronchus or lung (4) COPD exacerbation Current Visit: No Status: Acute (5) Counseling regarding advanced care planning and goals of care Current Visit: Yes Status: Acute Assessment and plan: Patient has transitioned to DNRCC - state form completed and signed by patient. She ;desires to go home today with hospice care - selected [facility]. Desires to enroll after she gets home. Referral called to [facility] and list of DME given. Prescriptions faxed to pharmacy for new comfort meds. Should be discharged later this am. Palliative-CN HPI - Data of Consult Consult date: 07/17/17 Requesting Physician: Susana Garrison MD Primary Care Provider: Pati Castro MD - Consult Narrative History of present illness: Ms. Moya is a 67 year old female with a history of metastatic lung cancer, who presented to the hospital after increasing shortness of breath and hypoxia at home. She wears oxygen at home - usually on 2-3 LPM. Her saturations were in the 70's. She was admitted and treated for exacerbation of COPD. She is no longer taking any type of cancer treatment. After discussion regarding her clinical status with the hospitalist, pt decided to transition to comfort care and desires to discuss hospice at home. Her pain has been poorly controlled and she has been utilizing up to 8 Percocet a day at home. Upon my visit, she is awake,, alert and chatting with multiple family members in the room. States she is in a great deal of back pain, and the Roxanol that she has been given is not effective. Also c/o constipation and poor appetite. CC: Susana Garrison MD Past Med Surg Social Fam HX - Past Medical History Medical history: cancer, CHF, COPD, CVA, hyperlipidemia, hypertension, seizures Psychiatric history: anxiety - Past Surgical History Surgical History: non-contributory, cholecystectomy - Social History Smoking Status: Current every day smoker Smokeless Tobacco Status: No Alcohol use: rarely Drug use: none Medications and Allergies Aspirin [Lo-Dose Aspirin EC] 81 mg PO DAILY 04/24/17 [History] Citalopram Hydrobromide [Citalopram HBr] 40 mg PO DAILY 04/24/17 [History] Ergocalciferol (VITAMIN D2) [Vitamin D] 400 unit PO DAILY 04/24/17 [History] Ferrous Sulfate 325 mg PO DAILY 04/24/17 [History] Lisinopril [Zestril] 40 mg PO DAILY 04/24/17 [History] Vitamin B Complex Vit C No.4 [Super B Complex] 1 tab PO DAILY 04/24/17 [History] amLODIPine [Norvasc] 5 mg PO DAILY 04/24/17 [History] Promethazine [Phenergan] 12.5 - 25 mg PO Q6HR PRN #80 tablet 06/04/17 [Rx] Esomeprazole Magnesium [Nexium] 40 mg PO BID #60 capsule. 06/12/17 [Rx] Albuterol Sulfate [Albuterol Inhaler] 2 puff IH Q4HR PRN #1 hfa.aer.ad 06/16/17 [Rx] Atorvastatin [Lipitor] 40 mg PO HS #30 tablet 06/16/17 [Rx] Benzonatate [Tessalon] 100 mg PO TID PRN #30 capsule 06/16/17 [Rx] Budesonide/Formoterol 80/4.5 [Symbicort 80/4.5] 2 puff IH BID #1 hfa.aer.ad 05/31 [Rx] Carvedilol [Coreg] 6.25 mg PO BIDWM #60 tablet 06/16/17 [Rx] GuaiFENesin ER [Mucinex] 600 mg PO BID PRN #30 tbbp.12hr 06/16/17 [Rx] Tiotropium [Spiriva] 18 mcg IH 0700 #30 capsule 06/16/17 [Rx] OxyCODONE/APAP 10/325 [Percocet 10/325 MG] 1 each PO Q6HR PRN 1 Days #4 tablet 07/02/17 [Rx] LORazepam [Ativan] 1 mg PO QID PRN 4 Days #16 tablet 07/17/17 [Rx] Morphine Sulfate SR (12 HR) [MS Contin] 1 tab PO Q12HR 4 Days #8 tab 07/17/17 [ Rx] OxyCODONE Immed Rel [Roxicodone 15 MG] 15 mg PO Q3H PRN 4 Days #24 tablet [Rx] Sennosides/Docusate Sodium [Senna Plus] 2 each PO BID 4 Days #16 tablet [Rx] levoFLOXacin [Levofloxacin] 500 mg PO Q48H #3 tablet 07/17/17 [Rx] predniSONE [PredniSONE] 40 mg PO DAILY #10 tablet 07/17/17 [Rx] 3 Allergy/AdvReac Type Severity Reaction Status Date / Time meloxicam [From [facility]] Allergy Anaphylaxis Verified 07/16/17 06:55 tetanus and diphtheria Allergy Swelling Verified 07/16/17 06:55 toxoids of Lip/Tongue/Throat nitroglycerin AdvReac See Verified 07/16/17 06:55 Comments All systems: reviewed and no additional remarkable complaints except as stated ( back pain, weakness, nonproductive cough, dyspnea even at rest, constipation) Palliative Care-Exam - Constitutional Vitals: Temp Pulse Resp BP Pulse Ox 97.1 F L 79 18 144/71 91 07/17/17 11:10 07/17/17 11:10 07/17/17 11:51 07/17/17 11:10 07/17/17 11:51 General appearance: Present: mild distress - Head Head Exam: Present: normal inspection, normocephalic - Eye Eye exam: Present: normal appearance, PERRL - Respiratory Respiratory exam: Present: decreased breath sounds, wheezes - Cardiovascular Cardiovascular exam: Present: +S1, +S2 - GI/Abdominal Exam GI/Abdominal exam: Present: diminished bowel sounds, soft - Extremities Exam Extremities exam: Present: normal capillary refill, normal inspection - Neurological Exam Neurological exam: Present: alert, oriented X3, strengths equal and symetr throughout - Skin Skin exam: Present: dry, warm Internal Medicine - CN: Reslt - Labs CBC & Chem 7: 07/16/17 05:28 07/16/17 05:28 Consult Discharge Plan - Plan Instructions: Lorazepam (By mouth), Prednisone (By mouth), Laxative, Stimulant (By mouth), Morphine, Rapid Release (By mouth), Oxycodone, Rapid Release (By mouth), Levofloxacin (By mouth), Morphine/Naltrexone (By mouth), Chest Pain (DC) , Acute Respiratory Distress Syndrome (DC), Chronic Obstructive Pulmonary Disease (DC) Referrals: Pati Castro MD [Primary Care Provider] - 07/24/17 10:00 am (Your appointment for 08-06-17 @ 1100 has been cancelled) Prescriptions: Morphine Sulfate SR (12 HR) [MS Contin] 1 tab PO Q12HR 4 Days #8 tab levoFLOXacin [Levofloxacin] 500 mg PO Q48H #3 tablet LORazepam [Ativan] 1 mg PO QID PRN 4 Days #16 tablet PRN Reason: Anxiety OxyCODONE Immed Rel [Roxicodone 15 MG] 15 mg PO Q3H PRN 4 Days #24 tablet PRN Reason: Breakthrough Pain predniSONE [PredniSONE] 40 mg PO DAILY #10 tablet Sennosides/Docusate Sodium [Senna Plus] 2 each PO BID 4 Days #16 tablet Palliative Quality Palliative Quality: Screen for Code Status: Yes, Screen for Goals of Care: Yes, Screen for Pain: Yes, If Pain Regimen Started, Initiate Bowel Regimen: Yes, Screen for Nausea/Vomitting: Yes Code Status: 07/16/17 02:46 Resuscitation Status: Active [RES] Routine Comment: Resuscitation Status: DNR-Comfort Care
[2017-07-17] MEDS ORDERED: *HR* Morphine Sulfate SR (12 HR) 30 MG TABLET.ER PO SCH (18:00)
--- NOTE | 2017-07-18 09:57 | Event Note ---
Date of Encounter: 07/18/17 Time of Encounter: 09:55 Hospice director medical surgical certification of terminal illness: Hospice benefit. Start: 07/17/2017 Hospice benefit. In: +90 days Palliative performance scale: 30-40% History: Patient with history of metastatic lung cancer now with increasing shortness of breath and hypoxemia at home also with history of COPD. She does not wish to have any further treatment for her metastatic lung cancer. Patient also has as a comorbidity failure to thrive therefore I believe that These findings support a life expectancy of 6 months or less. I attest that I have compose the above narrative based on my review of the patient's medical records, and or on my examination of the patient. Jesus Mari M.D. Associate medical specialist. [facility]
== END 2017-07-17 13:14 | disposition hospice, home (50) | DRG 190 ==
LOC: 3BNU 22:44 → EMEROO 22:44 → 3BNU 07-16 04:10 → SUATTDRO 07-16 04:11 → 2NNU 07-16 04:44
PROVIDERS: ADMIT Internal Medicine; ATTEND Internal Medicine